=== PATIENT | female | born 1930 | race Caucasian/White ===

== ENCOUNTER 2017-11-25 19:56 | Inpatient (IN) ==
[2017-11-25] MEDS ORDERED: *HR* OxyCODONE/APAP 5/325 TABLET PO ONE (20:09)
--- NOTE | 2017-11-25 20:12 | Emergency Department Note ---
Addendum entered and electronically signed by Nilton Macias DO 11/25/17 22:21: EKG demonstrates atrial fibrillation rate 95 bpm. Normal axis. Normal intervals. Normal R-wave progression. No gross ST elevations or depressions. No acute ischemic findings. Original Note: Disposition Clinical Impression: Femoral neck fracture Qualifiers: Encounter type: initial encounter Fracture type: closed Laterality: left Qualified Code(s): S72.002A - Fracture of unspecified part of neck of left femur , initial encounter for closed fracture Hypertension Qualifiers: Hypertension type: unspecified Qualified Code(s): I10 - Essential (primary) hypertension Afib Qualifiers: Atrial fibrillation type: unspecified Qualified Code(s): I48.91 - Unspecified atrial fibrillation Disposition: Admitted As Inpatient Condition: Good Fall HPI - General Chief Complaint: ED Fall Stated Complaint: fall Time Seen by Provider: 11/25/17 19:58 Source: patient, EMS Mode of arrival: EMS Limitations: physical limitation Nursing Notes Reviewed: Yes Vital Signs Reviewed: Yes - History of Present Illness HPI Narrative: 87-year-old female presents to the ER via EMS due to left hip pain. Reports that she was walking prior to arrival she was stepping up a step, her foot caught and she fell. She believes she landed on her left side. She denies head injury or loss of consciousness. She was unable to ambulate after the fall. EMS was called and she was brought in for evaluation. She denies any numbness tingling or paresthesias of the left leg. She denies any other injuries. She denies a prior history of surgical operation of the left hip. No other complaints. Pt Subjective Complaint: fall Onset (ago): [employer] Fall From: standing Fall Witnessed: yes Place Fall Occurred: other Loss of Consciousness: none Prolonged Down Time?: no Symptoms Prior to Fall: none Context: tripped/slipped Location of injury: hip Associated symptoms (after fall): Reports: denies - Related Data Home Medications Medication Instructions Recorded Confirmed CloNIDine HCl 0.1 mg PO AD PRN 01/09/15 04/30/15 Furosemide [Lasix] 40 mg PO AD PRN 01/09/15 04/30/15 Levothyroxine [Synthroid] 150 mcg PO QAM 01/09/15 04/30/15 Losartan [Cozaar] 100 mg PO QAM 01/09/15 04/30/15 Metformin [Glucophage] 500 mg PO QAM 01/09/15 04/30/15 Metoprolol XL (24 HR) Succ [Toprol 50 mg PO QAM 01/09/15 04/30/15 XL] Potassium Chloride 10 meq PO QAM 01/09/15 04/30/15 Amlodipine [Norvasc] 2.5 mg PO DAILY 04/30/15 04/30/15 Simvastatin [Zocor] 20 mg PO DAILY 04/30/15 04/30/15 Previous Rx's Medication Instructions Recorded Apixaban [Eliquis] 2.5 mg PO BID 60 Days tablet 05/03/15 Allergies Allergy/AdvReac Type Severity Reaction Status Date / Time Sulfa (Sulfonamide Allergy Hives Verified 01/09/15 18:17 Antibiotics) All systems ED: reviewed and negative except as stated. Cardiovascular: Denies: chest pain Gastrointestinal: Denies: abdominal pain Musculoskeletal: Reports: other (Left hip pain). 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 - Social History Smoking Status: Never smoker Alcohol use: Reports: none Drug use: Reports: none Physical Exam - General Limitations: no limitations General appearance: alert, in no apparent distress - Head Head exam: atraumatic, normocephalic - Eye Eye exam: Present: normal appearance - ENT ENT exam: normal exam - Neck Neck exam: Present: normal inspection, full ROM - Chest Chest inspection: Present: normal inspection, symmetric chest wall rise - Respiratory Respiratory exam: Present: normal lung sounds bilaterally - Cardiovascular Cardiovascular exam: Present: regular rate, normal rhythm, normal heart sounds - Abdominal Exam Abdominal exam: Present: soft, Non-Tender. Absent: tenderness, distention, rigidity - Extremities Exam Extremities exam: Present: normal inspection, full ROM - Expanded Upper Extremity Exam Shoulder exam: Present: normal inspection, full ROM Arm exam: Present: normal inspection, full ROM Elbow exam: Present: normal inspection, full ROM Forearm/Wrist exam: Present: normal inspection, full ROM Hand exam: Present: normal inspection, full ROM - Expanded Lower Extremity Exam Hip/Pelvis exam: Present: other (Tenderness to the left hip with external rotation of the left leg.) Upper leg exam: Present: normal inspection Knee exam: Present: normal inspection, full ROM Lower leg exam: Present: normal inspection, full ROM Ankle exam: Present: normal inspection, full ROM Foot/toe exam: Present: normal inspection, full ROM Neurovascular/Tendon exam: Absent: sensory deficit - Skin Skin exam: Present: warm, dry Course Course Narrative: Patient seen and examined. Vital signs reviewed. Imaging of the hip and pelvis as well as baseline labs. Gestalt is left hip fracture. Admit with orthopedic consultation. - Reevaluation(s) Reevaluation #1: Updated patient and family on findings. Comfortable with plan. She is noted to be hypertensive here. Labetalol 10 mg ordered. Patient to be admitted to the hospitalist service. - Consultations Consultation #1: I spoke with the on-call orthopedic surgeon Dr. Griffin. Discussed the patient' s history exam imaging and current interventions. Request nothing by mouth at midnight with anticipation of surgery in the morning. Vital Signs Temperature 97.6 F 11/25/17 19:59 Pulse Rate 101 11/25/17 19:59 Respiratory Rate 18 11/25/17 19:59 Blood Pressure 196/137 11/25/17 19:59 O2 Sat by Pulse Oximetry 94 11/25/17 19:59 Temperature 97.6 F 11/25/17 19:59 Pulse Rate 92 11/25/17 21:08 Respiratory Rate 17 11/25/17 21:08 Blood Pressure 194/111 11/25/17 21:08 O2 Sat by Pulse Oximetry 94 11/25/17 21:08 Oxygen Delivery Oxygen Delivery Room Air Fall - [facility] Narrative Medical decision making narrative: 87-year-old female with mechanical fall. Left femoral neck fracture. Neurovascularly intact otherwise. Case discussed with on-call orthopedic surgeon. Plan for operation in the morning. Nothing by mouth at midnight. Patient admitted to the hospitalist service. - Lab Data Lab results reviewed: Yes I reviewed the patient's lab results. Result diagrams: 11/25/17 21:24 11/25/17 21:24 Lab Results 11/25/17 11/25/17 11/25/17 Range/Units 21:24 21:24 21:24 WBC 11.7 H (4.3-11.1) K/mcL RBC 5.27 H (3.82-4.97) M/mcL Hgb 16.5 H (11.5-15.4) g/dL Hct 49.5 H (35.3-44.9) % MCV 93.9 (83.0-100.0) fL MCH 31.3 (28.0-33.3) pg MCHC 33.3 (31.6-35.5) g/dL RDW 13.3 (11.5-14.5) % Plt Count 216 (140-400) K/mcL MPV 10.9 (9.4-12.4) fL Immature Gran % 0.6 (0-4) % Seg Neutrophils % 81.4 % Lymphocytes % 11.1 % Monocytes % 5.2 % Eosinophils % 1.3 % Basophils % 0.4 % Neutrophils # 9.5 H (1.6-8.9) K/mcL Lymphocytes # 1.3 (0.6-4.6) K/mcL Monocytes # 0.6 (0.0-1.3) K/mcL Eosinophils # 0.2 (0.0-0.6) K/mcL Basophils # 0.1 (0.0-0.2) K/mcL PT 13.2 H (9.4-12.1) Seconds INR 1.2 Sodium 133 L (136-145) mEq/L Potassium 4.2 (3.5-5.1) mEq/L Chloride 95 L (98-107) mEq/L Carbon Dioxide 28 (23-29) mEq/L BUN 19 (8-23) mg/dL Creatinine 0.90 (0.60-1.20) mg/dL Est GFR ( Amer) > 60 (> 60) Est GFR (Non-Af Amer) 59 L (> 60) BUN/Creatinine Ratio 21 (6-26) Glucose 139 H (70-105) mg/dL Calculated Osmolality 281 (280-300) Calcium 10.0 (8.6-10.3) mg/dL S.B.A.R. - S.B.A.R. Situation: Demographics, MOA Background: Presenting Complaint, Relevant PMH, Meds, & Allergies Assessment: Vital Signs, Course and respsone to treatment, Exam Concerns, Patient/Family Expectation, Pertinant Lab Results Recommendation: Barrier(s) to disposition, Recommendation based on pending studies, treatments, or consults S.Shahriar.A.R. Report Given to: Dr. Kelley Attestation Statement - Attestation Attestation: Patient was seen with resident physician. I reviewed the history, physical, assessment and plan, and agree with the findings. I also personally evaluated this patient and had [id number] time with this patient. 87-year-old female presents to the emergency department with chief complaint of left hip pain. Patient basically tripped on a step her foot got caught and she landed on her left hip and pelvis. Patient denies loss of consciousness or head injury. She denies other complaints. She says her hip does not hurt too bad when she is sitting still, but she cannot walk on it or move it at all. She denies other injuries. Review of systems as above remainder negative. Physical exam vital signs demonstrate hypertension. Apparently patient is consistent with her hypertension medicines. ENT is unremarkable head and neck eyes show no signs of trauma or tenderness. Back is nontender. Pelvis is stable to palpation. Heart regular rhythm and rate. Lungs clear. Abdomen soft and nontender. Extremities she has a shortened externally rotated left foot consistent with a hip fracture. Distal pulses are intact. Psych normal neuro cannot move the left lower extremity secondary to pain but otherwise is neurologically intact with good sensation throughout. Skin no obvious rashes. Psych normal. ED course we will do basic lab testing in preparation for possibly going to the OR. We will get x-rays and admit the patient for hip fracture. We also started treatment for her high blood pressure. Orthopedics was contacted and consult did. Hospitalist service was notified as the need for admission. Patient was hemodynamically stable in the emergency department. I agree with resident physician assessment and plan.
[2017-11-25] MEDS ORDERED: *HR* Labetalol 100 MG/20 ML MDV IVP ONE (21:29)
[2017-11-25 21:36] LABS: Basophils # 0.1 K/mcL (0.0-0.2); Basophils % 0.4 %; Eosinophils # 0.2 K/mcL (0.0-0.6); Eosinophils % 1.3 %; Hematocrit 49.5 % (35.3-44.9); Hemoglobin 16.5 g/dL (11.5-15.4); Immature Granulocytes % 0.6 % (0-4); Lymphocytes # 1.3 K/mcL (0.6-4.6); Lymphocytes % 11.1 %; Mean Corpuscular HGB Conc 33.3 g/dL (31.6-35.5); Mean Corpuscular Hemoglobin 31.3 pg (28.0-33.3); Mean Corpuscular Volume 93.9 fL (83.0-100.0); Mean Platelet Volume 10.9 fL (9.4-12.4); Monocytes # 0.6 K/mcL (0.0-1.3); Monocytes % 5.2 %; Neutrophils # 9.5 K/mcL (1.6-8.9); Platelet Count 216 K/mcL (140-400); Red Blood Count 5.27 M/mcL (3.82-4.97); Red Cell Distribution Width 13.3 % (11.5-14.5); Segmented Neutrophils % 81.4 %
[2017-11-25 21:45] LABS: INR 1.2; Prothrombin Time 13.2 Seconds (9.4-12.1)
[2017-11-25 21:53] LABS: BUN/Creatinine Ratio 21 (6-26); Blood Urea Nitrogen 19 mg/dL (8-23); Carbon Dioxide 28 mEq/L (23-29); Chloride 95 mEq/L (98-107); Glucose 139 mg/dL (70-105); Osmolality,Calculated 281 (280-300); Potassium 4.2 mEq/L (3.5-5.1); Sodium 133 mEq/L (136-145); eGFR For Non-African Americans 59 (> 60)
[2017-11-26] MEDS ORDERED: Acetaminophen 325 MG TABLET PO PRN ×2 (02:20→13:12)
[2017-11-26] MEDS ORDERED: Naloxone 0.4 MG/ML INJ IVP PRN ×2 (02:20→13:12)
--- NOTE | 2017-11-26 02:30 | Internal Med History&Physical ---
Date of Encounter: 11/26/17 Time of Encounter: 01:40 Internal Medicine - H&P: HPI Chief complaint: Left femoral neck fracture Admitted From: Home Plans for Post Hospital Care: Home History of present illness: Ms. Dove is a 87 year old female Patient was getting ready to go to eat, arrived to the restaurant, got out of the car, attempted to step up to the curb and fell. She landed on her left side and had pain immediately in the left hip. She is transferred to the emergency room for further evaluation. Hip x-ray showed acute mildly displaced left femoral neck fracture. The emergency room contacted Dr. Griffin orthopedic surgeon, who agreed to see the patient in the morning. Patient has a known history of atrial fibrillation and takes Eliquis, but is unclear if she is actually taking this medicine as prescribed. Patient hypertensive in the emergency room, and was given 10 mg of labetalol. She was admitted to the hospital for further management. Past Med Surg Social Fam HX - Past Medical History Medical history: coronary artery disease, diabetes, hyperlipidemia, hypertension , RA Additional medical history: CHF Psychiatric history: no psych history - Past Surgical History Surgical History: hysterectomy, other Additional surgical history: Bladder surgery - Social History Smoking Status: Never smoker Smokeless Tobacco Status: No Alcohol use: none Drug use: none - Family History Father Living Status: Age at : 70 Mother Living Status: Age at : 70 Cause of : "age related" Hx Family Neuromuscular Disorders: Yes (ARTHRITIS) Internal Medicine - H&P: Meds CloNIDine HCl 0.1 mg PO AD PRN 01/09/15 [History] Furosemide [Lasix] 40 mg PO AD PRN 01/09/15 [History] Levothyroxine [Synthroid] 150 mcg PO QAM 01/09/15 [History] Losartan [Cozaar] 100 mg PO QAM 01/09/15 [History] Metformin [Glucophage] 500 mg PO QAM 01/09/15 [History] Metoprolol XL (24 HR) Succ [Toprol XL] 50 mg PO QAM 01/09/15 [History] Potassium Chloride 10 meq PO QAM 01/09/15 [History] Amlodipine [Norvasc] 2.5 mg PO DAILY 04/30/15 [History] Simvastatin [Zocor] 20 mg PO DAILY 04/30/15 [History] Apixaban [Eliquis] 2.5 mg PO BID 60 Days tablet 05/03/15 [Rx] LORazepam [Ativan] 0.5 mg PO DAILY PRN 11/25/17 [History] 3 Allergy/AdvReac Type Severity Reaction Status Date / Time Sulfa (Sulfonamide Allergy Hives Verified 01/09/15 18:17 Antibiotics) All Systems PM: A 10-system review of systems was performed and is negative for pertinent findings except as documented above in the HPI. - Constitutional Vitals: Temp Pulse Resp BP Pulse Ox 97.8 F 103 15 175/106 92 11/25/17 23:44 11/26/17 00:26 11/25/17 23:44 11/26/17 00:26 11/25/17 23:44 General appearance: Present: cooperative, A&O X 3, pleasant, no acute distress, answers questions appropriately - Head Head exam: Present: normal inspection - Eye Eye exam: Present: EOMI, normal appearance - Respiratory Respiratory exam: Present: CTAB. Absent: chest wall tenderness, respiratory distress, wheezes - Cardiovascular Cardiovascular exam: Present: irregular rhythm. Absent: diastolic murmur, systolic murmur - GI/Abdominal GI/Abdominal exam: Present: normal bowel sounds, soft. Absent: tenderness - Extremities Exam Extremities exam: Present: warm, radial pulses palpable and symmetrical. Absent : calf tenderness, pedal edema, tenderness Additional comments: mildly tender left hip laterally, mild tenderness over left groin with palpation. Left leg is externally rotated with shortening - Neurological Exam Neurological exam: Present: strengths equal and symetr throughout. Absent: facial droop, speech deficit - Skin Skin exam: Present: dry, normal color, warm Internal Med - H&P Results - Labs CBC & Chem 7: 11/26/17 05:22 11/26/17 05:22 - Assessment and plan (1) Femoral neck fracture Current Visit: Yes Status: Acute Assessment and plan: Patient had mechanical fall resulting in a left femoral neck fracture. Orthopedic surgery consulted, plan to take patient to OR for repair. Await management as per surgery. Qualifiers: Encounter type: initial encounter Fracture type: closed Laterality: left Qualified Code(s): S72.002A - Fracture of unspecified part of neck of left femur, initial encounter for closed fracture (2) Hypertension Current Visit: Yes Status: Chronic Assessment and plan: Patient's blood pressure was 196/137 in the emergency room, improved to 163/83 on the floor. Patient takes several antihypertensive medications. Continue home medications IV hydralazine as needed. Qualifiers: Hypertension type: unspecified Qualified Code(s): I10 - Essential (primary ) hypertension (3) Atrial fibrillation Current Visit: Yes Status: Acute Assessment and plan: Patient has atrial fibrillation, on metoprolol 50 mg as well as Eliquis. There was report that she may not be taking this medication as prescribed. 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
[2017-11-26] MEDS ORDERED: Dextrose Gel 15 GM/37.5 ML TUBE PO PRN ×4 (04:56→13:12)
[2017-11-26] MEDS ORDERED: D5% in Water 1,000 ML IVC PRN ×2 (04:56→13:12)
[2017-11-26] MEDS ORDERED: *HR* Dextrose 50 % in Water (Syg) 50 ML SYRINGE IVP PRN ×2 (04:56→13:12)
[2017-11-26 05:51] LABS: Hematocrit 48.4 % (35.3-44.9); Hemoglobin 16.1 g/dL (11.5-15.4); Mean Corpuscular HGB Conc 33.3 g/dL (31.6-35.5); Mean Corpuscular Hemoglobin 30.8 pg (28.0-33.3); Mean Corpuscular Volume 92.5 fL (83.0-100.0); Mean Platelet Volume 11.2 fL (9.4-12.4); Platelet Count 210 K/mcL (140-400); Red Blood Count 5.23 M/mcL (3.82-4.97); Red Cell Distribution Width 13.2 % (11.5-14.5)
[2017-11-26 06:10] LABS: BUN/Creatinine Ratio 23 (6-26); Blood Urea Nitrogen 18 mg/dL (8-23); Calcium 9.9 mg/dL (8.6-10.3); Carbon Dioxide 28 mEq/L (23-29); Chloride 95 mEq/L (98-107); Glucose 184 mg/dL (70-105); Osmolality,Calculated 283 (280-300); Potassium 4.2 mEq/L (3.5-5.1); Sodium 133 mEq/L (136-145); eGFR For Non-African Americans > 60 (> 60)
--- NOTE | 2017-11-26 07:35 | Anesthesia Evaluation PreOp ---
Date of Encounter: 11/26/17 Time of Encounter: 07:34 - Past History Planned Operation: L-sid Hip Arthroplasty Cardiac History: CHF, HTN, Hyperlipidemia, Arrhythmia (AFib - found to be non- compliant with Eliquis. 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: CVA (silent CVA), TIA Other Medical History: Diabetes Type II, Thyroid (Hypothyroidism), Other (RA) Anesthesia History: No Prior Anesthetic Complications, Past Anesthesia ( Hysterectomy, Bladder surgery) Alcohol Use: none Drug use: none Medications and Allergies CloNIDine HCl 0.1 mg PO AD PRN 01/09/15 [History] Furosemide [Lasix] 40 mg PO AD PRN 01/09/15 [History] Levothyroxine [Synthroid] 150 mcg PO QAM 01/09/15 [History] Losartan [Cozaar] 100 mg PO QAM 01/09/15 [History] Metformin [Glucophage] 500 mg PO QAM 01/09/15 [History] Metoprolol XL (24 HR) Succ [Toprol XL] 50 mg PO QAM 01/09/15 [History] Potassium Chloride 10 meq PO QAM 01/09/15 [History] Amlodipine [Norvasc] 2.5 mg PO DAILY 04/30/15 [History] Simvastatin [Zocor] 20 mg PO DAILY 04/30/15 [History] Apixaban [Eliquis] 2.5 mg PO BID 60 Days tablet 05/03/15 [Rx] LORazepam [Ativan] 0.5 mg PO DAILY PRN 11/25/17 [History] 3 Allergy/AdvReac Type Severity Reaction Status Date / Time Sulfa (Sulfonamide Allergy Hives Verified 01/09/15 18:17 Antibiotics) - Meds/Allergy Pre-op Review Medications Reviewed: Yes Allergies Reviewed: Yes Beta Blockers on Current Med List: Yes If Beta Blockers taken, Date/Time (Last Dose taken): Metoprolol 11/26/2017 @ 0814 Anesthesia Results - Labs 11/26/17 05:22 11/26/17 05:22 Laboratory Results WBC 16.7 K/mcL (4.3-11.1) H 11/26/17 05:22 RBC 5.23 M/mcL (3.82-4.97) H 11/26/17 05:22 Hgb 16.1 g/dL (11.5-15.4) H 11/26/17 05:22 Hct 48.4 % (35.3-44.9) H 11/26/17 05:22 MCV 92.5 fL (83.0-100.0) 11/26/17 05:22 MCH 30.8 pg (28.0-33.3) 11/26/17 05:22 MCHC 33.3 g/dL (31.6-35.5) 11/26/17 05:22 RDW 13.2 % (11.5-14.5) 11/26/17 05:22 Plt Count 210 K/mcL (140-400) 11/26/17 05:22 MPV 11.2 fL (9.4-12.4) 11/26/17 05:22 Immature Gran % 0.6 % (0-4) 11/25/17 21:24 Seg Neutrophils % 81.4 % 11/25/17 21:24 Lymphocytes % 11.1 % 11/25/17 21:24 Monocytes % 5.2 % 11/25/17 21:24 Eosinophils % 1.3 % 11/25/17 21:24 Basophils % 0.4 % 11/25/17 21:24 Neutrophils # 9.5 K/mcL (1.6-8.9) H 11/25/17 21:24 Lymphocytes # 1.3 K/mcL (0.6-4.6) 11/25/17 21:24 Monocytes # 0.6 K/mcL (0.0-1.3) 11/25/17 21:24 Eosinophils # 0.2 K/mcL (0.0-0.6) 11/25/17 21:24 Basophils # 0.1 K/mcL (0.0-0.2) 11/25/17 21:24 PT 13.2 Seconds (9.4-12.1) H 11/25/17 21:24 INR 1.2 11/25/17 21:24 Sodium 133 mEq/L (136-145) L 11/26/17 05:22 Potassium 4.2 mEq/L (3.5-5.1) 11/26/17 05:22 Chloride 95 mEq/L (98-107) L 11/26/17 05:22 Carbon Dioxide 28 mEq/L (23-29) 11/26/17 05:22 BUN 18 mg/dL (8-23) 11/26/17 05:22 Creatinine 0.80 mg/dL (0.60-1.20) 11/26/17 05:22 Est GFR ( Amer) > 60 (> 60) 11/26/17 05:22 Est GFR (Non-Af Amer) > 60 (> 60) 11/26/17 05:22 BUN/Creatinine Ratio 23 (6-26) 11/26/17 05:22 Glucose 184 mg/dL (70-105) H 11/26/17 05:22 Calculated Osmolality 283 (280-300) 11/26/17 05:22 Calcium 9.9 mg/dL (8.6-10.3) 11/26/17 05:22 Blood Type AB POSITIVE 11/26/17 05:22 Antibody Screen NEGATIVE 11/26/17 05:22 Impressions Hip X-Ray 11/25/17 20:09 IMPRESSION: Acute mildly displaced left femoral neck fracture. D/ / Andreas Blunt MD / Andreas Blunt MD Interpreting Provider: Andreas Blunt MD - Imaging Additional studies: ECHO 05/01/2015 LVEF 50%, MOderated MR< Moderate-Severe TR, Moderate Pulm Htn. All wall segments showed normal motion. Anesthesia Exam Vital Signs Temp Pulse Resp BP Pulse Ox 11/26/17 05:01 109 163/83 11/26/17 03:34 98.0 F 85 16 170/107 92 11/26/17 00:26 103 175/106 11/25/17 23:44 97.8 F 114 15 191/101 92 11/25/17 23:11 18 174/115 11/25/17 21:08 92 17 194/111 94 11/25/17 19:59 97.6 F 101 18 196/137 94 Intake and Output 11/25/17 11/25/17 11/26/17 15:59 23:59 07:59 Output Total 600 / 600 Balance -600 / -600 Output: Catheter 600 / 600 Other: Weight 55.338 kg 46.4 kg Blood Glucose* 219 Patient Weight 11/26/17 23:59 Weight 46.4 kg Height: 5' Weight: 102# BMI = 20 NPO (# of Hours): MNOc - HEENT Pupil (Motor): Pupils equal, EOMI Mallampati: II Teeth: Normal Oral Opening: Greater than 3 - 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 Dale Iqbal MD
[2017-11-26] MEDS: Insulin LISPRO 300 UNITS/3 ML VIAL SQ SCH ×3 (08:13→16:29)
[2017-11-26 08:27] LABS: Magnesium 1.5 mg/dL (1.6-2.6); Phosphorous 3.2 mg/dL (2.7-4.5)
[2017-11-26] MEDS ORDERED: Ketamine *HR* 500 MG/10 ML MDV ONE (08:41)
[2017-11-26] MEDS ORDERED: Acetaminophen IV 1,000 MG/100 ML INFUS..BTL ONE (08:42)
[2017-11-26] MEDS ORDERED: Lidocaine -MPF 0.5% 50 ML VIAL ONE (08:42)
[2017-11-26] MEDS ORDERED: Ethanol\\Acetic Acid\\Na Ace\\Ben 1,000 ML IRRIG.SOLN IR ONE (08:52)
[2017-11-26] MEDS ORDERED: Metoprolol XL (24 HR) Succ 50 MG TAB.ER.24H PO SCH (09:00)
[2017-11-26] MEDS ORDERED: Lidocaine -MPF 1% 5 ML AMPUL ONE (09:12)
[2017-11-26] MEDS ORDERED: *HR* Morphine Sulfate/PF 10 MG/10 ML AMPUL ONE (09:12)
--- NOTE | 2017-11-26 09:31 | Orthopedic Consult Note ---
Date of Encounter: 11/26/17 Time of Encounter: 09:31 Assessment and Plan (1) Femoral neck fracture Current Visit: Yes Status: Acute The diagnosis and treatment recommendations were discussed with the patient and her family. She has a displaced femoral neck fracture of the left hip and to allow her opportunity for early mobility with therapy, and for pain control and to decrease the risks associated with immobility, surgical treatment was recommended. After discussing the pros and cons of treatment options including non-operative and operative intervention, the patient has consented for left hip hemiarthroplasty to be performed. The risks and benefits of the procedure were fully explained in detail, including but not limited to the risk of infection, neurovascular injury, continued pain or stiffness, failure of surgery or dislocation, reinjury, or need for additional surgery, DVT, PE, general risks of anesthesia and loss of limb or life. No guarantees were given or implied and all questions were answered. The patient understands all the risks and does wish to proceed with written consent. NPO for surgery today. Appreciate medical management from primary team. Qualifiers: Encounter type: initial encounter Fracture type: closed Laterality: left Qualified Code(s): S72.002A - Fracture of unspecified part of neck of left femur, initial encounter for closed fracture History of Present Illness HPI: Ms. Dove is a 87 year old female with PMHx with CAD, HLD, HTN, CHF, diabetes, RA who tripped and had a mechanical fall yesterday onto her left hip. Denies hitting her head or loss of consciousness. No prodromal symptoms including chest pain, palpitations, lightheadedness, or blurring of vision. She was brought to the ED and diagnosed with a left hip displaced femoral neck fracture. Orthopedics was consulted for fracture management. Denies CP, SOB, fevers, chills or any recent illnesses. Denies pain other than her left hip. No numbness or tingling. She has a walker but does not always use it. Past Med Surg Social Fam HX - Past Medical History Medical history: coronary artery disease, diabetes, hyperlipidemia, hypertension , RA Additional medical history: CHF Psychiatric history: no psych history - Past Surgical History Surgical History: hysterectomy, other Additional surgical history: Bladder surgery - Social History Smoking Status: Never smoker Smokeless Tobacco Status: No Alcohol use: none Drug use: none - Family History Father Living Status: Age at : 70 Mother Living Status: Age at : 70 Cause of : "age related" Hx Family Neuromuscular Disorders: Yes (ARTHRITIS) Medications and Allergies CloNIDine HCl 0.1 mg PO AD PRN 01/09/15 [History] Furosemide [Lasix] 40 mg PO AD PRN 01/09/15 [History] Levothyroxine [Synthroid] 150 mcg PO QAM 01/09/15 [History] Losartan [Cozaar] 100 mg PO QAM 01/09/15 [History] Metformin [Glucophage] 500 mg PO QAM 01/09/15 [History] Metoprolol XL (24 HR) Succ [Toprol XL] 50 mg PO QAM 01/09/15 [History] Potassium Chloride 10 meq PO QAM 01/09/15 [History] Amlodipine [Norvasc] 2.5 mg PO DAILY 04/30/15 [History] Simvastatin [Zocor] 20 mg PO DAILY 04/30/15 [History] Apixaban [Eliquis] 2.5 mg PO BID 60 Days tablet 05/03/15 [Rx] LORazepam [Ativan] 0.5 mg PO DAILY PRN 11/25/17 [History] 3 Allergy/AdvReac Type Severity Reaction Status Date / Time Sulfa (Sulfonamide Allergy Hives Verified 01/09/15 18:17 Antibiotics) All Systems Reviewed: The remainder of the systems were reviewed and are negative except as noted in the HPI Physical Exam - Constitutional Vitals: Temp Pulse Resp BP Pulse Ox 97.6 F 103 17 154/74 94 11/26/17 08:28 11/26/17 08:28 11/26/17 08:28 11/26/17 08:28 11/26/17 08:28 Exam: Consult Exam: Constitutional -Vitals reviewed -The patient is well developed and well nourished. -Mood is pleasant. -The patient is well groomed. Psychiatric -The patient alert and oriented to person and place. Respiratory: -Respiratory effort normal Abdomen: -Soft abdomen -Non tender -Non distended: Left upper extremity: -No deformities. The overlying skin is intact with overlying ecchymosis. No TTP -No significant pain with passive motion of the shoulder, elbow, able to flex fingers. -Able to make an "OK" sign, cross the index and long fingers, and extend the thumb. -Sensation grossly intact to light touch throughout the median, radial, and ulnar distributions. -Radial pulse is present; Fingers have good capillary refill. Right upper extremity: -No deformities. The overlying skin is intact. No obvious signs of acute trauma. -No tenderness to palpation throughout. -No significant pain with passive motion of the shoulder, elbow, wrist, and fingers within the limits of the bed. -Able to make an "OK" sign, cross the index and long fingers, and extend the thumb. -Sensation grossly intact to light touch throughout the median, radial, and ulnar distributions. -Radial pulse is present; Fingers have good capillary refill. Left lower extremity: -The extremity is shortened and externally rotated. The overlying skin is intact. -There is tenderness in the groin region as well as the proximal lateral thigh. -I did not range the hip due to the known fracture. -No tenderness along the distal thigh, leg, ankle, foot, or toes. -Able to dorsiflex and plantarflex the ankle and toes. -Sensation is grossly intact to light touch throughout the sural, saphenous, superficial peroneal, and deep peroneal distributions. -Toes have good capillary refill. Right lower extremity: -No deformities. The overlying skin is intact. No obvious signs of acute trauma. -No tenderness to palpation throughout. -No pain with passive motion of the hip, knee, ankle, and toes within the limits of the bed. -No pain with axial loading of the thigh. -Able to dorsiflex and plantarflex the ankle and toes. -Sensation is grossly intact to light touch throughout the sural, saphenous, superficial peroneal, and deep peroneal distributions. -Toes have good capillary refill. Results - Labs Result Diagrams: 11/26/17 05:22 11/26/17 05:22 Labs: Abnormal lab results WBC 16.7 K/mcL (4.3-11.1) H 11/26/17 05:22 RBC 5.23 M/mcL (3.82-4.97) H 11/26/17 05:22 Hgb 16.1 g/dL (11.5-15.4) H 11/26/17 05:22 Hct 48.4 % (35.3-44.9) H 11/26/17 05:22 Neutrophils # 9.5 K/mcL (1.6-8.9) H 11/25/17 21:24 PT 13.2 Seconds (9.4-12.1) H 11/25/17 21:24 Sodium 133 mEq/L (136-145) L 11/26/17 05:22 Chloride 95 mEq/L (98-107) L 11/26/17 05:22 Glucose 184 mg/dL (70-105) H 11/26/17 05:22 POC Glucose 167 mg/dL (70-99) H 11/26/17 08:12 Magnesium 1.5 mg/dL (1.6-2.6) L 11/26/17 05:22 B-Natriuretic Peptide 376 pg/mL (Less than 100) H 11/26/17 05:22 H & H 11/26/17 Range/Units 05:22 Hgb 16.1 H (11.5-15.4) g/dL Hct 48.4 H (35.3-44.9) % All other labs normal. - Diagnostic results Hip x-ray: report reviewed, image reviewed (Displaced left femoral neck fracture. No other fracture/dislocation noted) Consult Discharge Plan - Plan Referrals: Chaz Pepe MD [Primary Care Provider] -
--- NOTE | 2017-11-26 10:34 | Anesthesia Procedures ---
Date of Encounter: 11/26/17 Time of Encounter: 09:32 Procedures: Anesthesia - Epidural/Spinal Patient ID/Chart reviewed: Yes Patient examined: Yes Consent Obtained: Yes Supplemental Oxygen: Nasal Cannula Supplemental Oxygen Rate (L/min): 3 Sedation: Fentanyl (mcg): 25 (Patient also received 15mg ketamine IVP) Site Prep: Aseptic Technique, Sterile prep and drape, Povidone-Iodine 1% Patient position: left lateral decubitus Local Anesthetic: Lidocaine 1% Amount of Local Anesthetic used: 3 Interspace Used: L3-L4 Blood: No CSF: Yes Paresthesia: No Spinal Needle Gauge: 25 (3.5" pencil point needle) Spinal Dose: 2.25mL 0.5% bupi,25mcg fentanyl,250mcg PF morphine Procedure: successful on 1st attempt; performed by Dr. Delgado; patient tolerated procedure well Vitals + FHT's: 3 Vital Signs Time pre-procedure post-procedure BP 197/111 164/105 Pulse 72 69 Resp 16 16 O2 Sat 98 97
[2017-11-26] MEDS ORDERED: *HR* Labetalol 20 MG/4 ML SYRINGE IVP PRN (10:36)
[2017-11-26] MEDS ORDERED: *HR* HYDROmorphone 2 MG TABLET PO PRN (10:36)
[2017-11-26] MEDS ORDERED: *HR* OxyCODONE Immed Rel 5 MG TABLET PO PRN (10:36)
[2017-11-26] MEDS ORDERED: *HR* FentaNYL (PF) 100 MCG/2 ML VIAL ONE (10:41)
[2017-11-26] MEDS ORDERED: *HR* PHENYLEPHRINE 1,000 MCG/10 ML SYRINGE IVP ONE (10:41)
[2017-11-26] MEDS ORDERED: Lidocaine -MPF 2% 2 ML VIAL ONE (10:41)
[2017-11-26] MEDS ORDERED: *HR* Magnesium Sulfate 1 GM/2 ML VIAL ONE (10:41)
[2017-11-26] MEDS ORDERED: *HR* Propofol 200 MG/20 ML VIAL IVP ONE (10:41)
[2017-11-26] MEDS ORDERED: Ketorolac 30 MG/ML VIAL ONE (11:01)
--- NOTE | 2017-11-26 12:41 | Anesthesia Evaluation Post Op ---
Date of Encounter: 11/26/17 Time of Encounter: 12:39 - Vital Signs Vital Signs: Vital Signs/O2 Sat/Glucose, Most Current Temp Pulse Resp BP Pulse Ox 11/26/17 12:17 97.5 F L 63 14 105/60 95 11/26/17 12:07 61 14 116/74 98 11/26/17 11:53 97.3 F L 60 16 110/64 96 11/26/17 11:43 61 16 108/79 95 11/26/17 11:33 56 14 109/70 95 11/26/17 11:23 97.1 F L 68 14 113/82 96 - Lungs Lungs: Clear Ascult./Percussion - Airway Airway: Non-obstructed - Cardiovascular Regular Rate - Mental Status Mental Status: Alert & Oriented, Answers Appropriately - Pain Pain Scale: 0 Pain Scale used: Numeric (1 - 10) - Nausea Vomiting Nausea Vomiting: Not Present - Hydration Hydration: Tolerates oral liquids, Scott catheter - Discharge PostOp Status: Transfer Patient to floor Anes Supervising Prov Stmt: Pt seen/evaluated, VSS and pt has met criteria for discharge to home. - MD Rasheed
[2017-11-26] MEDS ORDERED: Furosemide 40 MG TABLET PO PRN (13:12)
[2017-11-26] MEDS ORDERED: MOM Conc 10 ML UD.LIQ PO PRN (13:12)
[2017-11-26] MEDS ORDERED: *HR* Morphine 2 MG/ML SYRINGE IVP PRN (13:12)
[2017-11-26] MEDS ORDERED: Ondansetron 4 MG/2 ML VIAL IVP PRN (13:12)
[2017-11-26] MEDS ORDERED: Sennosides 8.6 MG TABLET PO PRN (13:12)
[2017-11-26] MEDS ORDERED: Temazepam 15 MG CAPSULE PO PRN (13:12)
[2017-11-26] MEDS ORDERED: cloNIDine HCl 0.1 MG TABLET PO PRN (13:12)
[2017-11-26] MEDS ORDERED: *HR* LORazepam 0.5 MG TABLET PO PRN (13:12)
[2017-11-26] MEDS: Ringers Solution, Lactated 1,000 ML IVC SCH (13:23)
--- NOTE | 2017-11-26 14:24 | Orthopedic Operative Note ---
Date of procedure: 11/26/17 Procedure: Procedure: Left hip hemiarthroplasty Preoperative Diagnosis: Left displaced femoral neck fracture Postoperative Diagnosis: Same Surgeon: Lazaro Griffin MD Inside Sales Advertising Executive: None Anesthesia: General EBL: 100 cc Complications: None Components used: Biomet Echo lateralized femoral stem, size 11, Endo II 46 mm head, -3 neck INDICATIONS: This is a 87 yo F who had a fall and sustained a left displaced femoral neck fracture. After discussing the procedure at length, and to allow for early mobilization and pain control, the patient elected for operative management with a left hip hemiarthroplasty. The risks and benefits of the procedure were fully explained. Those risks include but are not limited to, infection, neurovascular injury, continued pain, stiffness, further injury, need for further surgery, DVT, PE, loss of limb, and loss of life. The patient understood all of these risks and wished to proceed. Informed consent was obtained. No guarantees were stated or implied. OPERATIVE REPORT: The patient was identified in the holding area. The left lower extremity was marked, the patient was taken to the operating room and general anesthetic was administered on the hospital bed. The patients head, neck and airway were protected by anesthesia through the case. The patient was then transferred to the operating table and placed in the lateral position on a peg board. All bony prominences were well padded. The left lower extremity was then prepped and draped in the normal manner. Preoperative antibiotics were given prior to incision. A surgical time out protocol was then performed. A posterior approach was made. Incision was made just posterior to the greater trochanter. Sharp dissection was carried through subcutaneous tissue down to the fascia, coagulating any skin bleeders. Fascia tamiko and gluteus rojelio fascia were then incised. Rojelio fibers were digitally dissected and a Charnley retractor was placed. The hip was extended and internally rotated. A Cobra retractor was then placed over the ilium to retract the abductors anteriorly. Electrocautery was then used to release the piriformis and then short external rotators and capsule from the posterior aspect of the hip joint and a full-thickness flap was created. This was tagged for later repair. The release was carried down distally to the level of the lesser trochanter. At this point the hip was dislocated and the femoral neck fracture was exposed. A saw was used to freshen up the femoral neck cut approximately 1 fingerbreadth above the lesser trochanter. The femoral head was removed with a corkscrew. The fractured neck fragments were removed with a ronguer. We then exposed the femur using a femoral elevator, and sequentially remained and broached the femur to appropriate size in accordance with the Biomet system. We seated a size 11 mm broach and did initial trial reductions with standard neck. The extremity was long and so the hip was dislocated and the standard neck was exchanged for a -3 neck and the hip was reduced. We had good soft tissue tensioning and stable range of motion, with good reproduction of leg lengths. The trials were removed and the femoral stem was press fit in place. Trial reductions were repeated with the -3 neck. Satisfied with the hip kinematics, we cleaned and dried the trunion and the final femoral head was impacted and the hip was reduced. We then did our final check of range of motion , stability and leg lengths. We then thoroughly irrigated the wound and closed the hip capsule with #1 ethibond. The piriformis tendon and external rotators were repaired through bone tunnels. Fascia tamiko was closed with #1 ethibond and subcutaneous tissues with 2-0 stratafix. Skin was closed with 3-0 stratafix. We then placed sterile dressings the patient was awoken by anesthesia and transferred to PACU in stable condition. Patient tolerated the procedure well. Postop plan: The patient will be transferred back to the floor and will be weight-bearing as tolerated postop with posterior hip precautions. Was there an resident care assistant present: No Estimated blood loss (cc): 100
--- NOTE | 2017-11-26 15:46 | Event Note ---
Date of Encounter: 11/26/17 Time of Encounter: 15:43 87 year old female with h/o- a,fib, HTN, DM, CAD, admitted with left hip pain, noted to have left femoral neck fracture, underwent left hip hemiarthroplasty today; resting in bed, denies left hip pain; somewaht drowsy; Chest -S1, S2 heard, irregular rate Left lateral hip- mild edema and some blood from the surgical incision, honeycomb dressing intact; hip abductor in place; Labs reviewed- leukocytosis likely due to stress/reactive; Mg- 1.3, supplemented Left hip fracture- s/p surgery POD-0; pain control, supportive care; postop care per Ortho; PT/OT evaluation; Atrial fibrillation- rate-controlled; continue beta len, anticoagulation with Eliquis has been resumed;
[2017-11-26] MEDS: Ascorbic Acid 500 MG TABLET PO SCH (16:24)
[2017-11-26] MEDS: Apixaban 5 MG TABLET PO SCH (20:45)
[2017-11-27] MEDS ORDERED: cloNIDine HCl 0.1 MG TABLET PO ONE (00:49)
[2017-11-27 00:57] LABS: Basophils # 0.1 K/mcL (0.0-0.2); Basophils % 0.4 %; Eosinophils # 0.5 K/mcL (0.0-0.6); Eosinophils % 3.8 %; Immature Granulocytes % 0.4 % (0-4); Lymphocytes # 0.8 K/mcL (0.6-4.6); Mean Corpuscular HGB Conc 33.8 g/dL (31.6-35.5); Mean Corpuscular Hemoglobin 31.6 pg (28.0-33.3); Mean Corpuscular Volume 93.5 fL (83.0-100.0); Mean Platelet Volume 10.8 fL (9.4-12.4); Monocytes # 0.7 K/mcL (0.0-1.3); Monocytes % 5.4 %; Platelet Count 170 K/mcL (140-400); Red Blood Count 4.49 M/mcL (3.82-4.97); Red Cell Distribution Width 13.4 % (11.5-14.5)
[2017-11-27 00:58] LABS: Hemoglobin 14.2 g/dL (11.5-15.4)
[2017-11-27 01:20] LABS: Potassium 4.2 mEq/L (3.5-5.1)
[2017-11-27] MEDS: Insulin LISPRO 300 UNITS/3 ML VIAL SQ SCH ×3 (08:37→19:29)
[2017-11-27] MEDS ORDERED: *HR* Metformin 500 MG TABLET PO SCH (09:00)
[2017-11-27] MEDS ORDERED: 0.9 % Sodium Chloride 1,000 ML IVC ONE (10:44)
--- NOTE | 2017-11-27 10:47 | Internal Med Progress Note ---
Hospitalist Progress Note - Encounter Date of Encounter: 11/27/17 Time of Encounter: 10:10 - Subjective Interval History: Overnight, she received 1 dose of temazepam for agitation as she currently appears sleepy but easily arousable. Does not seem to be in severe distress. - Exam Vitals: Temp Pulse Resp BP Pulse Ox 98.0 F 71 16 126/61 93 11/27/17 06:43 11/27/17 06:43 11/27/17 06:43 11/27/17 06:43 11/27/17 06:43 Exam: General: somnolent but easily arousable HEENT:EOM, pupils equal, round, and reactive. Cardiovascular:Normal S1 & S2 Lungs:Normal breath sounds, no wheezes or crackles. Abdomen:Soft, non-tender, no rigidity. Extremities: left hip dressing dry and clean. Neurovascularly intact distally - Assessment and Plan (1) Femoral neck fracture Current Visit: Yes Status: Acute Assessment and Plan: Status post left hip hemiarthroplasty, postop day 1. Continue pain management, PT/OT, postop care per orthopedics Discharge planning Resume anticoagulation with Eliquis (2) Dehydration Current Visit: Yes Status: Acute Assessment and Plan: She was a little delirious postoperatively and she had sodium of 131 and creatinine increased from 0.8 to 1.08 1 dose of normal saline 1L today avoid sedating agents during day time and encourage PO intake Monitor BMP (3) Delirium Current Visit: Yes Status: Acute Assessment and Plan: Was agitated overnight after the family members left the room. Was given 1 dose of Restoril overnight and she was somnolent until breakfast this morning. Will try Seroquel when necessary for agitation if absolutely needed (4) Atrial fibrillation Current Visit: Yes Status: Acute Assessment and Plan: Rate controlled on beta len, anticoagulation has been resumed (5) Non-insulin dependent type 2 diabetes mellitus Current Visit: No Status: Chronic Assessment and Plan: A1c 6.7 in June 2017. On metformin 500 mg twice a day. Will cover her with sliding scale insulin while inpatient. (6) Hypertension Current Visit: Yes Status: Chronic Assessment and Plan: Well-controlled, continue home dose of Norvasc, losartan, beta len. (7) DVT prophylaxis Current Visit: No Status: Acute Assessment and Plan: Eliquis has been resumed. - Time Spent with Patient Total time spent is greater than 50% in coordination of care (as documented) at patient's floor/unit and/or counseling patient: Plan of Care Discussed with: family Internal Medicine: Result - Labs CBC & Chem 7: 11/27/17 00:44 11/27/17 00:44 Labs: Short CBC 11/27/17 Range/Units 00:44 WBC 12.0 H (4.3-11.1) K/mcL Hgb 14.2 D (11.5-15.4) g/dL Hct 42.0 (35.3-44.9) % Plt Count 170 (140-400) K/mcL Neutrophils # 10.0 H (1.6-8.9) K/mcL BMP 11/27/17 00:44 Sodium 131 L Potassium 4.2 Chloride 94 L Carbon Dioxide 29 BUN 22 Creatinine 1.08 Glucose 126 H Calcium 9.0 - ABG Interpretation ABG results: PT/INR, D-dimer PT 13.2 Seconds (9.4-12.1) H 11/25/17 21:24 - VTE Documentation of Mechanical Device: Intermittent pneumatic compression device Consult Discharge Plan - Plan Referrals: Chaz Pepe MD [Primary Care Provider] - (1) Femoral neck fracture Qualifiers: Encounter type: initial encounter Fracture type: closed Laterality: left Qualified Code(s): S72.002A - Fracture of unspecified part of neck of left femur , initial encounter for closed fracture (4) Atrial fibrillation Qualifiers: Atrial fibrillation type: unspecified Qualified Code(s): I48.91 - Unspecified atrial fibrillation (6) Hypertension Qualifiers: Hypertension type: unspecified Qualified Code(s): I10 - Essential (primary) hypertension
--- NOTE | 2017-11-27 12:01 | Orthopedics Progress Note ---
Date of Encounter: 11/27/17 Time of Encounter: 11:59 - Assessment and Plan (1) Femoral neck fracture Current Visit: Yes Status: Acute Qualifiers: Encounter type: initial encounter Fracture type: closed Laterality: left Qualified Code(s): S72.002A - Fracture of unspecified part of neck of left femur, initial encounter for closed fracture Subjective Interval history: Doing fine POD#1 s/p L hip hemiarthroplasty. Resting comfortably. No N/V. No CP/ SOB. No fevers or chills. AFVSS Hg 14.2 GEN: NAD, AAOx3 LLE: Dressing c/d/i No drainage or erythema BCR over toes POD#1 s/p L hip hemiarthroplasty -WBAT LLE -Ambulate with PT as able -PO pain control -Discharge planning - will need rehab Objective Vital signs: Vital Signs Temp Pulse Resp BP Pulse Ox 11/27/17 10:47 97.6 F 67 16 117/70 96 11/27/17 10:20 110/64 11/27/17 06:43 98.0 F 71 16 126/61 93 11/27/17 05:55 97.4 F L 71 12 141/88 94 11/27/17 00:32 97.9 F 77 14 174/92 100 11/26/17 21:24 97.9 F 67 14 159/77 92 11/26/17 16:24 96.7 F L 71 20 119/50 97 11/26/17 14:15 96.9 F L 56 14 127/66 98 11/26/17 13:45 96.9 F L 59 14 134/69 98 11/26/17 13:15 96.9 F L 60 14 123/67 97 11/26/17 12:45 96.2 F L 61 14 115/63 92 11/26/17 12:17 97.5 F L 63 14 105/60 95 11/26/17 12:07 61 14 116/74 98 Intake and Output 11/26/17 11/27/17 11/27/17 23:59 07:59 15:59 Intake Total 100 / 100 Output Total 200 / 200 Balance -100 / -100 Intake: IV Fluids 100 / 100 Ancef 2,000 MG In 0.9 % Sodium 100 / 100 Chloride 100 ML @ 200 mls/hr IVPB Q8HR RONALD Rx#:[id number] Output: Catheter 200 / 200 Other: Meal Dinner Percent of Meal Consumed 35% Blood Glucose* 148 131 131 - Labs CBC & BMP: 11/27/17 00:44 11/27/17 00:44 Labs: Abnormal lab results WBC 12.0 K/mcL (4.3-11.1) H 11/27/17 00:44 Neutrophils # 10.0 K/mcL (1.6-8.9) H 11/27/17 00:44 PT 13.2 Seconds (9.4-12.1) H 11/25/17 21:24 Sodium 131 mEq/L (136-145) L 11/27/17 00:44 Chloride 94 mEq/L (98-107) L 11/27/17 00:44 Est GFR ( Amer) 58 (> 60) L 11/27/17 00:44 Est GFR (Non-Af Amer) 48 (> 60) L 11/27/17 00:44 Glucose 126 mg/dL (70-105) H 11/27/17 00:44 POC Glucose 148 mg/dL (70-99) H 11/26/17 21:31 Calculated Osmolality 277 (280-300) L 11/27/17 00:44 B-Natriuretic Peptide 376 pg/mL (Less than 100) H 11/26/17 05:22 - VTE Documentation of Mechanical Device: Intermittent pneumatic compression device Consult Discharge Plan - Plan Referrals: Chaz Pepe MD [Primary Care Provider] -
[2017-11-27] MEDS: Ascorbic Acid 500 MG TABLET PO SCH ×2 (16:04→19:29)
[2017-11-27] MEDS: Apixaban 5 MG TABLET PO SCH ×2 (16:05→21:44)
[2017-11-27] MEDS: Multivit/Ca/Min/Fe/FA 1 TAB TABLET PO SCH (16:05)
[2017-11-27] MEDS: amLODIPine 5 MG TABLET PO SCH (16:24)
[2017-11-27] MEDS: Metoprolol XL (24 HR) Succ 50 MG TAB.ER.24H PO SCH (16:24)
[2017-11-27] MEDS ORDERED: *HR* Labetalol 20 MG/4 ML SYRINGE IVP PRN (16:31)
--- NOTE | 2017-11-27 17:27 | Electrocardiograph Report ---
[address] [place] [address] Test Date: 2017-11-25 Pat Name: MICHAEL Dove Department: 103 Room: [facility] Gender: Unknown Regional Cra: : 1930 Requested By: Order Number: [id number] Reading MD: Riana Ugalde Measurements Intervals [place] Rate: 95 P: [place]: 0 QRS: 54 QRSD: 72 T: 16 QT: 314 QTc: 367 Interpretive Statements ATRIAL FIBRILLATION SEPTAL MYOCARDIAL INFARCTION [40+ ms Q WAVE IN V1/V2], PROBABLY OLD Electronically Signed On 11-27-2017 17:26:23 EDT by Riana Ugalde
--- NOTE | 2017-11-27 17:32 | Electrocardiograph Report ---
[place] [address] Test Date: 2017-11-26 Pat Name: Maylin Dove Department: 114 Room: [facility] Gender: F Customer Service Dispatcher: [id number] : 1930 Requested By: Neel Lamar Order Number: [id number] Reading MD: Riana Ugalde Measurements Intervals [place] Rate: 96 P: MD: 0 QRS: 48 QRSD: 71 T: 27 QT: 309 QTc: 363 Interpretive Statements ATRIAL FIBRILLATION LOW QRS VOLTAGE IN PRECORDIAL LEADS SEPTAL MYOCARDIAL INFARCTION, PROBABLY OLD Electronically Signed On 11-27-2017 17:30:52 EDT by Riana Ugalde
[2017-11-27] MEDS: Ringers Solution, Lactated 1,000 ML IVC SCH (21:44)
[2017-11-28 01:45] LABS: Basophils # 0.1 K/mcL (0.0-0.2); Basophils % 0.4 %; Eosinophils # 0.7 K/mcL (0.0-0.6); Eosinophils % 4.8 %; Hematocrit 41.4 % (35.3-44.9); Hemoglobin 14.1 g/dL (11.5-15.4); Immature Granulocytes % 0.5 % (0-4); Lymphocytes # 1.1 K/mcL (0.6-4.6); Lymphocytes % 7.6 %; Mean Corpuscular HGB Conc 34.1 g/dL (31.6-35.5); Mean Corpuscular Volume 93.9 fL (83.0-100.0); Mean Platelet Volume 11.7 fL (9.4-12.4); Monocytes # 1.2 K/mcL (0.0-1.3); Monocytes % 8.7 %; Neutrophils # 10.8 K/mcL (1.6-8.9); Platelet Count 160 K/mcL (140-400); Red Blood Count 4.41 M/mcL (3.82-4.97); Red Cell Distribution Width 13.6 % (11.5-14.5)
[2017-11-28 06:19] LABS: BUN/Creatinine Ratio 37 (6-26); Blood Urea Nitrogen 34 mg/dL (8-23); Calcium 8.8 mg/dL (8.6-10.3); Carbon Dioxide 23 mEq/L (23-29); Chloride 98 mEq/L (98-107); Glucose 170 mg/dL (70-105); Osmolality,Calculated 280 (280-300); Potassium 4.6 mEq/L (3.5-5.1); Sodium 129 mEq/L (136-145); eGFR For Non-African Americans 57 (> 60)
[2017-11-28] MEDS: Insulin LISPRO 300 UNITS/3 ML VIAL SQ SCH ×3 (09:04→17:41)
[2017-11-28] MEDS: Ascorbic Acid 500 MG TABLET PO SCH ×2 (09:10→17:39)
[2017-11-28] MEDS: Multivit/Ca/Min/Fe/FA 1 TAB TABLET PO SCH (09:11)
[2017-11-28] MEDS: Apixaban 5 MG TABLET PO SCH ×2 (09:11→21:22)
[2017-11-28] MEDS: Metoprolol XL (24 HR) Succ 50 MG TAB.ER.24H PO SCH (09:11)
[2017-11-28] MEDS: amLODIPine 5 MG TABLET PO SCH (09:11)
--- NOTE | 2017-11-28 10:24 | Internal Med Progress Note ---
<SonaliGregorio Alexandro - Last Filed: 11/28/17 16:23> Hospitalist Progress Note - Encounter Date of Encounter: 11/28/17 Time of Encounter: 10:22 - Subjective Interval History: 87 year old female with PMHx of afib on eliquis + CAD + DM + HLD + HTN is post- op day 2 for left hip hemiarthroplasty after fall. Patient states she is doing well with no complaints. Patient's pain is well controlled. Patient given temazepam 2 nights ago for agitation which made her very drowsy yesterday. Patient had a similar agitation event last night, but nurse said it wasn't bad enough to warrant another dose of temazepam. Patient denies SERRANO, SOB, CP, numbness/tingling. - Exam Vitals: Temp Pulse Resp BP Pulse Ox 98.1 F 95 16 160/87 99 11/28/17 06:41 11/28/17 06:41 11/28/17 06:41 11/28/17 06:41 11/28/17 06:41 Exam: Gen: no acute distress, A&O x 3 Heart: irregular rhythm, normal rate Lungs: clear to auscultation bilaterally, no wheezes Abdomen: non-tender, non-distended, soft Extremities: pulses +2 in LE bilaterally, sensation intact in LE bilaterally, no edema MSK: dressing over surgical site clean/dry/intact Patient now on room air - Assessment and Plan (1) Femoral neck fracture Current Visit: Yes Status: Acute Comments: Post-op day 2 for left hemiarthroplasty. Pain controlled with medication Patient will need rehab with PT/OT evaluation (2) Atrial fibrillation with slow ventricular response Current Visit: Yes Status: Chronic Assessment and Plan: Patient was in atrial fibrillation on my exam. On metoprolol for rate control. On eliquis for DVT prophylaxis. (3) Hypertension Current Visit: Yes Status: Chronic Assessment and Plan: Patient's current blood pressure is 160/87. Continue labetalol 10 mg daily. (4) Hyponatremia Current Visit: Yes Status: Acute Comments: Patient's sodium downtrending 133 > 129. Patient received 1 L of LR and 1 L of NS yesterday. Will hold off on fluids for now and monitor sodium level. No evidence of altered mental status. (5) Diabetes mellitus type 2 in nonobese Current Visit: No Status: Chronic Assessment and Plan: Patients blood glucose down trending. Insulin held yesterday. (6) HLD (hyperlipidemia) Current Visit: No Status: Chronic Assessment and Plan: Patient on simvastatin at home. No further intervention at this time. DVT Prophylaxis: Eliquis - Time Spent with Patient Total time spent is greater than 50% in coordination of care (as documented) at patient's floor/unit and/or counseling patient: 25 - 35 minutes Plan of Care Discussed with: family Internal Medicine: Result - Labs CBC & Chem 7: 11/28/17 01:01 11/28/17 05:44 Labs: Short CBC 11/28/17 Range/Units 01:01 WBC 13.8 H (4.3-11.1) K/mcL Hgb 14.1 (11.5-15.4) g/dL Hct 41.4 (35.3-44.9) % Plt Count 160 (140-400) K/mcL Neutrophils # 10.8 H (1.6-8.9) K/mcL BMP 11/28/17 05:44 Sodium 129 L Potassium 4.6 Chloride 98 Carbon Dioxide 23 BUN 34 H Creatinine 0.93 Glucose 170 H Calcium 8.8 - ABG Interpretation ABG results: PT/INR, D-dimer PT 13.2 Seconds (9.4-12.1) H 11/25/17 21:24 - VTE Documentation of Mechanical Device: Intermittent pneumatic compression device Consult Discharge Plan - Plan Referrals: Chaz Pepe MD [Primary Care Provider] - <Esperanza Navarro - Last Filed: 11/28/17 17:32> Hospitalist Progress Note - Encounter Date of Encounter: 11/28/17 - Exam Vitals: Temp Pulse Resp BP Pulse Ox 99.1 F 83 16 154/72 97 11/28/17 16:30 11/28/17 16:30 11/28/17 16:30 11/28/17 16:30 11/28/17 16:30 - Assessment and Plan (1) Hypertension Current Visit: Yes Status: Chronic (2) Non-insulin dependent type 2 diabetes mellitus Current Visit: No Status: Chronic (3) DVT prophylaxis Current Visit: No Status: Acute (4) Atrial fibrillation Current Visit: Yes Status: Acute (5) Femoral neck fracture Current Visit: Yes Status: Acute Comments: Post-op day 2 for left hemiarthroplasty. Pain controlled with medication Patient will need rehab with PT/OT evaluation (6) Delirium Current Visit: Yes Status: Acute (7) Dehydration Current Visit: Yes Status: Acute - Time Spent with Patient Total time spent is greater than 50% in coordination of care (as documented) at patient's floor/unit and/or counseling patient: Internal Medicine: Result - Labs CBC & Chem 7: 11/28/17 01:01 11/28/17 05:44 Labs: Short CBC 11/28/17 Range/Units 01:01 WBC 13.8 H (4.3-11.1) K/mcL Hgb 14.1 (11.5-15.4) g/dL Hct 41.4 (35.3-44.9) % Plt Count 160 (140-400) K/mcL Neutrophils # 10.8 H (1.6-8.9) K/mcL BMP 11/28/17 05:44 Sodium 129 L Potassium 4.6 Chloride 98 Carbon Dioxide 23 BUN 34 H Creatinine 0.93 Glucose 170 H Calcium 8.8 - ABG Interpretation ABG results: PT/INR, D-dimer PT 13.2 Seconds (9.4-12.1) H 11/25/17 21:24 - Attending Attestation I have seen and examined this patient independently. I have discussed with resident physician Dr. Lyon regarding the management plan. Agree with the documentation. <Gregorio Lyon - Last Filed: 11/28/17 16:23> (1) Femoral neck fracture Qualifiers: Encounter type: initial encounter Fracture type: closed Laterality: left Qualified Code(s): S72.002A - Fracture of unspecified part of neck of left femur , initial encounter for closed fracture (3) Hypertension Qualifiers: Hypertension type: unspecified Qualified Code(s): I10 - Essential (primary) hypertension (6) HLD (hyperlipidemia) Qualifiers: Hyperlipidemia type: unspecified Qualified Code(s): E78.5 - Hyperlipidemia, unspecified <NavarroEsperanza - Last Filed: 11/28/17 17:32> (1) Hypertension Qualifiers: Hypertension type: unspecified Qualified Code(s): I10 - Essential (primary) hypertension (4) Atrial fibrillation Qualifiers: Atrial fibrillation type: unspecified Qualified Code(s): I48.91 - Unspecified atrial fibrillation (5) Femoral neck fracture Qualifiers: Encounter type: initial encounter Fracture type: closed Laterality: left Qualified Code(s): S72.002A - Fracture of unspecified part of neck of left femur , initial encounter for closed fracture
[2017-11-28] MEDS: *HR* OxyCODONE/APAP 5/325 TABLET PO PRN (21:23)
[2017-11-29 01:21] LABS: Basophils % 0.3 %; Eosinophils # 0.3 K/mcL (0.0-0.6); Hematocrit 38.3 % (35.3-44.9); Hemoglobin 12.9 g/dL (11.5-15.4); Immature Granulocytes % 0.6 % (0-4); Lymphocytes # 1.1 K/mcL (0.6-4.6); Lymphocytes % 7.3 %; Mean Corpuscular HGB Conc 33.7 g/dL (31.6-35.5); Mean Corpuscular Hemoglobin 30.9 pg (28.0-33.3); Mean Corpuscular Volume 91.6 fL (83.0-100.0); Mean Platelet Volume 11.6 fL (9.4-12.4); Monocytes # 1.3 K/mcL (0.0-1.3); Monocytes % 8.7 %; Neutrophils # 11.6 K/mcL (1.6-8.9); Platelet Count 177 K/mcL (140-400); Red Blood Count 4.18 M/mcL (3.82-4.97); Red Cell Distribution Width 13.6 % (11.5-14.5); Segmented Neutrophils % 81.1 %
[2017-11-29 01:40] LABS: BUN/Creatinine Ratio 45 (6-26); Blood Urea Nitrogen 34 mg/dL (8-23); Calcium 8.7 mg/dL (8.6-10.3); Carbon Dioxide 26 mEq/L (23-29); Chloride 97 mEq/L (98-107); Glucose 204 mg/dL (70-105); Osmolality,Calculated 283 (280-300); Potassium 4.5 mEq/L (3.5-5.1); Sodium 130 mEq/L (136-145); eGFR For Non-African Americans > 60 (> 60)
[2017-11-29 01:51] LABS: Thyroid Stimulating Hormone 2.125 mcIU/mL (0.340-5.600)
[2017-11-29] MEDS: Metoprolol XL (24 HR) Succ 50 MG TAB.ER.24H PO SCH (08:36)
[2017-11-29] MEDS: amLODIPine 5 MG TABLET PO SCH (08:36)
[2017-11-29] MEDS: Multivit/Ca/Min/Fe/FA 1 TAB TABLET PO SCH (08:36)
[2017-11-29] MEDS: Apixaban 5 MG TABLET PO SCH (08:36)
[2017-11-29] MEDS: Ascorbic Acid 500 MG TABLET PO SCH ×2 (08:37→18:17)
[2017-11-29] MEDS: Insulin LISPRO 300 UNITS/3 ML VIAL SQ SCH ×3 (08:42→18:13)
--- NOTE | 2017-11-29 14:03 | Discharge Summary ---
Date of Encounter: 11/29/17 Time of Encounter: 13:54 - Discharge Diagnosis (1) Femoral neck fracture Priority: Primary Status: Acute Assessment and Plan: Patient is post-op day 3 for left hip hemiarthropathy Patient's pain well controlled with percoset No complications Discharge to [facility] for PT/OT rehab Qualifiers: Encounter type: initial encounter Fracture type: closed Laterality: left Qualified Code(s): S72.002A - Fracture of unspecified part of neck of left femur, initial encounter for closed fracture (2) Atrial fibrillation with slow ventricular response Priority: Primary Status: Chronic Assessment and Plan: Continue metoprolol for rate control Continue eliquis for PE prophylaxis (3) Hypertension Priority: Secondary Status: Chronic Assessment and Plan: Blood pressure 134/83 today Continue losartan Continue amlodipine Qualifiers: Hypertension type: unspecified Qualified Code(s): I10 - Essential (primary ) hypertension (4) Hyponatremia Priority: Secondary Status: Acute Assessment and Plan: Patient's sodium was 130 today Trending upward Likely overhydrated - IV fluids were stopped yesterday (5) Diabetes mellitus type 2 in nonobese Priority: Secondary Status: Chronic (6) HLD (hyperlipidemia) Priority: Secondary Status: Chronic Assessment and Plan: Patient on simvastatin Qualifiers: Hyperlipidemia type: unspecified Qualified Code(s): E78.5 - Hyperlipidemia , unspecified Hospital course: Ms. Dove is a 87 year old female with PMHx of afib on eliquis + DM + HLD + HTN who presented to [facility] ED after a fall. X-ray showed a left femoral head fracture that required surgery. Patient had no complications from surgery and pain was well controlled with medication. Patient had one overnight event in which she became agitated and was treated with 0.5 mg ativan. Patient was in atrial fibrillation during the hospital course, which was managed with metoprolol and eliquis. She was also given labetalol, losartan, and amlodipine for blood pressure control. Patient is now post-op day 3 from surgery and will be discharged to [facility] for PT/OT rehab. She was given prescriptions for percocet and ativan for 2 days. Discharge discussed with: patient, family, nurse - Time Spent with Patient Total time spent providing and/or coordinating discharge services: Less than 30 minutes - Discharge Medications Prescriptions: OxyCODONE/APAP 5/325 [Percocet 5/325 MG] 1 each PO Q6HR PRN 2 Days #8 tablet PRN Reason: POST-OP Moderate Pain Docusate [Colace] 100 mg PO BID #60 capsule Ferrous Sulfate 325 mg PO BIDWM #60 tablet LORazepam [Ativan] 0.5 mg PO HS PRN 2 Days #2 tablet PRN Reason: Anxiety Home Medications: Furosemide [Lasix] 40 mg PO DAILY PRN 01/09/15 [History] Levothyroxine [Synthroid] 150 mcg PO QAM 01/09/15 [History] Losartan [Cozaar] 100 mg PO QAM 01/09/15 [History] Metformin [Glucophage] 500 mg PO BID 01/09/15 [History] Metoprolol XL (24 HR) Succ [Toprol XL] 50 mg PO QAM 01/09/15 [History] Potassium Chloride 10 meq PO QAM 01/09/15 [History] Amlodipine [Norvasc] 2.5 mg PO DAILY 04/30/15 [History] Simvastatin [Zocor] 20 mg PO DAILY 04/30/15 [History] Apixaban [Eliquis] 2.5 mg PO BID 60 Days tablet 05/03/15 [Rx] Docusate [Colace] 100 mg PO BID #60 capsule 11/29/17 [Rx] Ferrous Sulfate 325 mg PO BIDWM #60 tablet 11/29/17 [Rx] LORazepam [Ativan] 0.5 mg PO HS PRN 2 Days #2 tablet 11/29/17 [Rx] OxyCODONE/APAP 5/325 [Percocet 5/325 MG] 1 each PO Q6HR PRN 2 Days #8 tablet 05/18 [Rx] Allergies/Adverse Reactions: 3 Allergy/AdvReac Type Severity Reaction Status Date / Time Sulfa (Sulfonamide Allergy Hives Verified 01/09/15 18:17 Antibiotics) Date of admission: 11/26/17 11:19 Primary care physician: Chaz Pepe MD Discharging clinician: Gregorio Lyon Anticipated date of discharge: 11/29/17 - Constitutional Vitals: Temp Pulse Resp BP Pulse Ox 98.5 F 86 16 134/83 96 11/29/17 06:29 11/29/17 06:29 11/29/17 06:29 11/29/17 06:29 11/29/17 06:29 General appearance: Present: cooperative, A&O X 3, pleasant, no acute distress, answers questions appropriately - Respiratory Respiratory exam: Present: CTAB - Cardiovascular Cardiovascular exam: Present: irregular rhythm, +S1 - Extremities Exam Extremities exam: Present: normal inspection, warm, radial pulses palpable and symmetrical Additional comments: Neurovascularly intact - Expanded Lower Extremities Exam Lower Leg exam: Present: normal inspection Ankle exam: Present: normal inspection Neuro vascular tendon exam: Present: no vascular compromise - Incison Incision: Present: clean and dry, intact Comments: On left hip - Patient Status Disposition: Transfer SNF Condition: Good Overall status at discharge: patient is progressing back to baseline - Discharge Instructions Follow Up With: Chaz Pepe MD [Primary Care Provider] - - Diet and Activity Activity: as per physical therapy Diet: regular diet - VTE Documentation of Mechanical Device: Intermittent pneumatic compression device
[2017-11-29] MEDS: *HR* OxyCODONE/APAP 5/325 TABLET PO PRN (14:13)
[2017-11-29 16:18] VITALS: BP 129/83
--- NOTE | 2017-11-29 16:37 | Event Note ---
Date of Encounter: 11/29/17 Time of Encounter: 09:00 I have seen and examined this patient independently. I have discussed with resident physician Dr. Lyon regarding the discharge and follow-up plan. Details please refer to his note.
--- NOTE | 2017-11-29 16:39 | Physician Discharge Referral ---
ExtendedCare Referral Info Transfer To: SNF Provider in Charge after Transfer: PCP Institutional Level of Care: Skilled - Diagnosis (1) Femoral neck fracture Status: Acute (2) Atrial fibrillation with slow ventricular response Priority: Primary Status: Chronic (3) Hypertension Priority: Secondary Status: Chronic (4) Hyponatremia Priority: Secondary Status: Acute (5) Diabetes mellitus type 2 in nonobese Priority: Secondary Status: Chronic (6) HLD (hyperlipidemia) Priority: Secondary Status: Chronic - Transfer Medications Prescriptions: OxyCODONE/APAP 5/325 [Percocet 5/325 MG] 1 each PO Q6HR PRN 2 Days #8 tablet PRN Reason: POST-OP Moderate Pain Docusate [Colace] 100 mg PO BID #60 capsule Ferrous Sulfate 325 mg PO BIDWM #60 tablet LORazepam [Ativan] 0.5 mg PO HS PRN 2 Days #2 tablet PRN Reason: Anxiety Home Medications: Furosemide [Lasix] 40 mg PO DAILY PRN 01/09/15 [History] Levothyroxine [Synthroid] 150 mcg PO QAM 01/09/15 [History] Losartan [Cozaar] 100 mg PO QAM 01/09/15 [History] Metformin [Glucophage] 500 mg PO BID 01/09/15 [History] Metoprolol XL (24 HR) Succ [Toprol XL] 50 mg PO QAM 01/09/15 [History] Potassium Chloride 10 meq PO QAM 01/09/15 [History] Amlodipine [Norvasc] 2.5 mg PO DAILY 04/30/15 [History] Simvastatin [Zocor] 20 mg PO DAILY 04/30/15 [History] Apixaban [Eliquis] 2.5 mg PO BID 60 Days tablet 05/03/15 [Rx] Docusate [Colace] 100 mg PO BID #60 capsule 11/29/17 [Rx] Ferrous Sulfate 325 mg PO BIDWM #60 tablet 11/29/17 [Rx] LORazepam [Ativan] 0.5 mg PO HS PRN 2 Days #2 tablet 11/29/17 [Rx] OxyCODONE/APAP 5/325 [Percocet 5/325 MG] 1 each PO Q6HR PRN 2 Days #8 tablet 05/18 [Rx] Allergies/Adverse Reactions: 3 Allergy/AdvReac Type Severity Reaction Status Date / Time Sulfa (Sulfonamide Allergy Hives Verified 01/09/15 18:17 Antibiotics) - Respiratory Orders Smoking Cessation: Smoking cessation has been advised. For more information, call the [place] Tobacco Quit Line at 2-353-SSFZ-NOW. - Advance Directives Code Status: Full Code - Mobility Orders Ambulate - Rehabiliation Orders Rehab Orders: Evaluation for Physical Therapy, Evaluation for Occupational Therapy - Diet Orders Regular CERTIFICATION: I certify that the transfer of the above named patient to an Extended Care Facility is necessary for the continuing treatment of the diagnosis listed. The above information is true and accurate reflection of patient's current condition. Confidential - Redisclosure prohibited without a patient's written consent.
== END 2017-11-29 19:03 | DRG 470 ==
LOC: 3NENU 19:56 → EMEROO 19:56 → SUATTDRO 22:22 → 3NENU 23:26 → SUATTDRO 11-26 11:19
PROVIDERS: ADMIT Family Medicine; ATTEND Internal Medicine

== ENCOUNTER 2018-01-08 09:14 | Inpatient (IN) ==
--- NOTE | 2018-01-08 09:39 | Emergency Department Note ---
Disposition Clinical Impression: Constipation by delayed colonic transit, Colitis, Lactate blood increase Leukocytosis Qualifiers: Leukocytosis type: unspecified Qualified Code(s): D72.829 - Elevated white blood cell count, unspecified Disposition: Admitted As Inpatient Condition: Fair Time of Disposition: 12:26 Abdominal Pain HPI - General Chief Complaint: ED Abdominal Pain Stated Complaint: bowel impaction Time Seen by Provider: 01/08/18 09:16 Source: patient, EMS Nursing Notes Reviewed: Yes Vital Signs Reviewed: Yes - History of Present Illness HPI Narrative: Patient is an 87-year-old female who presents to [facility] ED via EMS from [facility] with concern for 5 days of no bowel movements. Patient has been on milk of magnesia for the last 2 days without any relief. She has become more distended. Family notes that she also seems slightly more confused than normal. She does have a history of dementia which has been steadily worsening as well. Patient currently denying any symptoms to me. Denies any chest pain, difficulty breathing, abdominal pain, problems with urination. Her daughter who is the power of district attorney states that patient has very poor short-term memory. Onset (ago): day(s) (5) Consistency: constant Pain Scale: 0 Quality: fullness Improves with: nothing Worsens with: nothing Associated symptoms: Reports: constipation. Denies: nausea, vomiting, fever, chills Treatments prior to arrival: prescription analgesics - Related Data Home Medications Medication Instructions Recorded Confirmed Furosemide [Lasix] 40 mg PO DAILY PRN 01/09/15 01/08/18 Levothyroxine [Synthroid] 150 mcg PO QAM 01/09/15 01/08/18 Losartan [Cozaar] 100 mg PO QAM 01/09/15 01/08/18 Metformin [Glucophage] 500 mg PO BID 01/09/15 01/08/18 Metoprolol XL (24 HR) Succ [Toprol 50 mg PO QAM 01/09/15 01/08/18 XL] Amlodipine [Norvasc] 2.5 mg PO DAILY 04/30/15 01/08/18 Simvastatin [Zocor] 20 mg PO DAILY 04/30/15 01/08/18 Calcium Carbonate [Calcium] 500 mg PO BID 01/08/18 01/08/18 Lactulose [Enulose] 20 gm PO BID 01/08/18 01/08/18 Midodrine HCl 2.5 mg PO TID 01/08/18 01/08/18 Previous Rx's Medication Instructions Recorded Apixaban [Eliquis] 2.5 mg PO BID 60 Days tablet 05/03/15 Docusate [Colace] 100 mg PO BID #60 capsule 11/29/17 Ferrous Sulfate 325 mg PO BIDWM #60 tablet 11/29/17 LORazepam [Ativan] 0.5 mg PO HS PRN 2 Days #2 tablet 11/29/17 OxyCODONE/APAP 5/325 [Percocet 1 each PO Q6HR PRN 2 Days #8 tablet 11/29/17 5/325 MG] Allergies Allergy/AdvReac Type Severity Reaction Status Date / Time Sulfa (Sulfonamide Allergy Hives Verified 01/09/15 18:17 Antibiotics) All systems ED: reviewed and negative except as stated. Abdominal Pain PMH - Past Medical History Medical history: Reports: coronary artery disease, diabetes, hyperlipidemia, hypertension, RA Female Surgical History: Reports: other [employer] history: Reports: non-contributory Psychiatric history: Reports: no psych history - Social History Smoking status: Never smoker Alcohol use: Reports: none Drug use: Reports: none Physical Exam - General Limitations: no limitations General appearance: alert, in no apparent distress - Head Head exam: atraumatic, normocephalic, normal inspection - Eye Eye exam: Present: EOMI - ENT ENT exam: normal exam, normal oropharynx, mucous membranes moist - Neck Neck exam: Present: normal inspection, full ROM, trachea midline - Chest Chest inspection: Present: normal inspection, symmetric chest wall rise - Respiratory Respiratory exam: Present: normal lung sounds bilaterally - Cardiovascular Cardiovascular exam: Present: regular rate, normal rhythm, normal heart sounds - Abdominal Exam Abdominal exam: Present: soft, distention, diminished bowel sounds - Extremities Exam Extremities exam: Present: normal inspection, full ROM. Absent: tenderness, pedal edema - Neurological Exam Neurological exam: Present: alert, oriented X3 - Psychiatric Psychiatric exam: Present: normal affect, normal mood - Skin Skin exam: Present: warm Course Course Narrative: Patient seen and examined. Patient with no bowel movement for the past 5 days. There are some reports of possible increasing confusion though patient does have baseline dementia as well. She has also not been eating or drinking as much as she normally does and has had about a 10 pound weight loss since her surgery last month. Abdominal lab work, urine analysis, CT of the abdomen and pelvis ordered. - Reevaluation(s) Reevaluation #1: Patient's lab work shows a leukocytosis of 27,000, lactic acidosis over 5. Her CT of the abdomen and pelvis shows signs of fecal impaction with signs of colitis and possible partial bowel obstruction. Patient was manually disimpacted and a large amount of stool was evacuated from the rectal vault. Patient was given the milk of molasses enema following this. Patient started on Zosyn to cover for colitis. A stool sample was sent for a GI panel. We will give a liter of fluids as well. Discussed with the hospitalist Dr. Odom for admission. She would also like surgery consult due to the lactic acidosis and concern for possible bowel obstruction. I discussed with the surgeon Dr. Balbuena who will see the patient in consultation. He would also like coags ordered. Time: 14:25 Vital Signs Temperature 98.3 F 01/08/18 09:17 Pulse Rate 65 01/08/18 09:17 Respiratory Rate 16 01/08/18 09:17 Blood Pressure 164/77 01/08/18 09:17 O2 Sat by Pulse Oximetry 97 01/08/18 09:17 Temperature 98.3 F 01/08/18 09:17 Pulse Rate 65 01/08/18 09:17 Respiratory Rate 16 01/08/18 09:17 Blood Pressure 164/77 01/08/18 09:17 O2 Sat by Pulse Oximetry 97 01/08/18 09:17 Oxygen Delivery Oxygen Delivery Room Air Abdominal Pain - Medical Records Medical records reviewed: Yes I reviewed the patient's medical records. - Lab Data Lab results reviewed: Yes I reviewed the patient's lab results. Result diagrams: 01/08/18 10:20 01/08/18 10:20 Lab Results 01/08/18 01/08/18 01/08/18 Range/Units 10:20 10:20 10:20 WBC 27.8 H (4.3-11.1) K/mcL RBC 4.58 (3.82-4.97) M/mcL Hgb 14.6 (11.5-15.4) g/dL Hct 43.9 (35.3-44.9) % MCV 95.9 (83.0-100.0) fL MCH 31.9 (28.0-33.3) pg MCHC 33.3 (31.6-35.5) g/dL RDW 15.1 H (11.5-14.5) % Plt Count 386 (140-400) K/mcL MPV 9.9 (9.4-12.4) fL Immature Gran % 1.2 (0-4) % Seg Neutrophils % 94.3 % Lymphocytes % 1.3 % Monocytes % 3.0 % Eosinophils % 0.0 % Basophils % 0.2 % Neutrophils # 26.2 H (1.6-8.9) K/mcL Lymphocytes # 0.4 L (0.6-4.6) K/mcL Monocytes # 0.8 (0.0-1.3) K/mcL Eosinophils # 0.0 (0.0-0.6) K/mcL Basophils # 0.1 (0.0-0.2) K/mcL Platelet Estimate Normal (Normal) PT (9.4-12.1) Seconds INR APTT (26.0-36.0) Seconds Sodium 134 L (136-145) mEq/L Potassium 3.5 (3.5-5.1) mEq/L Chloride 90 L (98-107) mEq/L Carbon Dioxide 30 H (23-29) mEq/L BUN 21 (8-23) mg/dL Creatinine 0.88 (0.60-1.20) mg/dL Est GFR ( Amer) > 60 (> 60) Est GFR (Non-Af Amer) > 60 (> 60) BUN/Creatinine Ratio 24 (6-26) Glucose 264 H (70-105) mg/dL Calculated Osmolality 290 (280-300) Lactic Acid 5.8 H* (0.5-2.2) mmol/L Calcium 9.7 (8.6-10.3) mg/dL Total Bilirubin 1.1 H (0.3-1.0) mg/dL Direct Bilirubin 0.4 H (0.0-0.2) mg/dL Indirect Bilirubin 0.7 (0.0-1.2) mg/dL AST 18 (13-39) Units/L ALT 16 (7-52) Units/L Alkaline Phosphatase 123 H (34-104) Units/L Serum Total Protein 6.9 (6.4-8.9) g/dL Albumin 3.7 (3.5-5.7) g/dL Globulin 3.2 (2.4-3.5) g/dL Albumin/Globulin Ratio 1.2 (1.1-2.2) Lipase < 3 L (11-82) Units/L Stl C. cayetanensis PCR (Not detect) Stool Rotavirus A PCR (Not detect) Stl Adenov F 40/41 PCR (Not detect) Stool Astrovirus (PCR) (Not detect) Stool Campylobacter PCR (Not detect) Stl C. diff Tox A/B PCR (Not detect) Stool Cryptosporidium PCR (Not detect) Stl Sh Tox Pr E STEC PCR (Not detect) Stool E coli O157 PCR (Not detect) Stl Enterotoxigenic E PCR (Not detect) Stool EPEC (PCR) (Not detect) Stool EAEC (PCR) (Not detect) Stl E. histolytica PCR (Not detect) Stool Giardia Lamblia PCR (Not detect) Stool Salmonella PCR (Not detect) Stool Sapovirus (PCR) (Not detect) Stl P. shigelloides PCR (Not detect) Stl Shigella/EIEC PCR (Not detect) St Y.enterocolitica PCR (Not detect) Stool Vibrio (PCR) (Not detect) Stl Vibrio cholerae PCR (Not detect) Stl Norovirus GI/GII PCR (Not detect) Stl GI Panel (PCR) [facility] 01/08/18 01/08/18 Range/Units 10:20 11:33 WBC (4.3-11.1) K/mcL RBC (3.82-4.97) M/mcL Hgb (11.5-15.4) g/dL Hct (35.3-44.9) % MCV (83.0-100.0) fL MCH (28.0-33.3) pg MCHC (31.6-35.5) g/dL RDW (11.5-14.5) % Plt Count (140-400) K/mcL MPV (9.4-12.4) fL Immature Gran % (0-4) % Seg Neutrophils % % Lymphocytes % % Monocytes % % Eosinophils % % Basophils % % Neutrophils # (1.6-8.9) K/mcL Lymphocytes # (0.6-4.6) K/mcL Monocytes # (0.0-1.3) K/mcL Eosinophils # (0.0-0.6) K/mcL Basophils # (0.0-0.2) K/mcL Platelet Estimate (Normal) PT 20.9 H (9.4-12.1) Seconds INR 1.9 APTT 32.1 (26.0-36.0) Seconds Sodium (136-145) mEq/L Potassium (3.5-5.1) mEq/L Chloride (98-107) mEq/L Carbon Dioxide (23-29) mEq/L BUN (8-23) mg/dL Creatinine (0.60-1.20) mg/dL Est GFR ( Amer) (> 60) Est GFR (Non-Af Amer) (> 60) BUN/Creatinine Ratio (6-26) Glucose (70-105) mg/dL Calculated Osmolality (280-300) Lactic Acid (0.5-2.2) mmol/L Calcium (8.6-10.3) mg/dL Total Bilirubin (0.3-1.0) mg/dL Direct Bilirubin (0.0-0.2) mg/dL Indirect Bilirubin (0.0-1.2) mg/dL AST (13-39) Units/L ALT (7-52) Units/L Alkaline Phosphatase (34-104) Units/L Serum Total Protein (6.4-8.9) g/dL Albumin (3.5-5.7) g/dL Globulin (2.4-3.5) g/dL Albumin/Globulin Ratio (1.1-2.2) Lipase (11-82) Units/L Stl C. cayetanensis PCR Not detected (Not detect) Stool Rotavirus A PCR Not detected (Not detect) Stl Adenov F 40/41 PCR Not detected (Not detect) Stool Astrovirus (PCR) Not detected (Not detect) Stool Campylobacter PCR Not detected (Not detect) Stl C. diff Tox A/B PCR Not detected (Not detect) Stool Cryptosporidium PCR Not detected (Not detect) Stl Sh Tox Pr E STEC PCR Not detected (Not detect) Stool E coli O157 PCR Not detected (Not detect) Stl Enterotoxigenic E PCR Not detected (Not detect) Stool EPEC (PCR) Not detected (Not detect) Stool EAEC (PCR) Not detected (Not detect) Stl E. histolytica PCR Not detected (Not detect) Stool Giardia Lamblia PCR Not detected (Not detect) Stool Salmonella PCR Not detected (Not detect) Stool Sapovirus (PCR) Not detected (Not detect) Stl P. shigelloides PCR Not detected (Not detect) Stl Shigella/EIEC PCR Not detected (Not detect) St Y.enterocolitica PCR Not detected (Not detect) Stool Vibrio (PCR) Not detected (Not detect) Stl Vibrio cholerae PCR Not detected (Not detect) Stl Norovirus GI/GII PCR Not detected (Not detect) Stl GI Panel (PCR) Com See below - Radiology Data Radiology results reviewed: Yes I reviewed the patient's radiology results. Abdomen/Pelvis CT 01/08/18 09:29 IMPRESSION: 1. Moderate amount of stool in the rectosigmoid colon with pericolonic stranding suggestive of stercoral colitis. Infectious or inflammatory colitis could also be a possibility. There is focal narrowing of the midsigmoid colon adjacent to a partially calcified structure of uncertain etiology. No comparison exams are available. A partial obstruction is not excluded, however the more upstream colon is not significantly dilated. No pneumatosis or free air. 2. Bilateral inguinal hernias containing nonobstructed loop of bowels. 3. Cholelithiasis with mild intra and extrahepatic biliary duct dilation. Recommend correlation with LFTs. D/ / 01/08/2018 11:16:46 Tresa Gil MD / [employer] Interpreting Provider: Tresa Gil MD
--- NOTE | 2018-01-08 10:03 | Emergency Department Note ---
Disposition Clinical Impression: Constipation by delayed colonic transit, Colitis, Lactate blood increase, Leukocytosis Disposition: Admitted As Inpatient Referrals: Marquita Nj [employer]CHIT[employer] [Primary Care Provider] - Forms: ED Satisfaction Letter, Work/School Release General Adult HPI - General Chief complaint: ED Abdominal Pain Stated complaint: bowel impaction Time Seen by Provider: 01/08/18 09:16 Source: patient, EMS Limitations: no limitations - History of Present Illness Pain Scale: 0 - Related Data Home Medications Medication Instructions Recorded Confirmed Furosemide [Lasix] 40 mg PO DAILY PRN 01/09/15 11/26/17 Levothyroxine [Synthroid] 150 mcg PO QAM 01/09/15 11/26/17 Losartan [Cozaar] 100 mg PO QAM 01/09/15 11/26/17 Metformin [Glucophage] 500 mg PO BID 01/09/15 11/26/17 Metoprolol XL (24 HR) Succ [Toprol 50 mg PO QAM 01/09/15 11/26/17 XL] Potassium Chloride 10 meq PO QAM 01/09/15 11/26/17 Amlodipine [Norvasc] 2.5 mg PO DAILY 04/30/15 11/26/17 Simvastatin [Zocor] 20 mg PO DAILY 04/30/15 11/26/17 Previous Rx's Medication Instructions Recorded Apixaban [Eliquis] 2.5 mg PO BID 60 Days tablet 05/03/15 Docusate [Colace] 100 mg PO BID #60 capsule 11/29/17 Ferrous Sulfate 325 mg PO BIDWM #60 tablet 11/29/17 LORazepam [Ativan] 0.5 mg PO HS PRN 2 Days #2 tablet 11/29/17 OxyCODONE/APAP 5/325 [Percocet 1 each PO Q6HR PRN 2 Days #8 tablet 11/29/17 5/325 MG] Allergies Allergy/AdvReac Type Severity Reaction Status Date / Time Sulfa (Sulfonamide Allergy Hives Verified 01/09/15 18:17 Antibiotics) Past Medical History - Past Medical History Medical history: Reports: coronary artery disease, diabetes, hyperlipidemia, hypertension, RA Surgical history: Reports: hysterectomy, other Psychiatric history: Reports: no psych history 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 will admit for colitis as well iv zosyn iv fluids Vital Signs Temperature 98.3 F 01/08/18 09:17 Pulse Rate 65 01/08/18 09:17 Respiratory Rate 16 01/08/18 09:17 Blood Pressure 164/77 01/08/18 09:17 O2 Sat by Pulse Oximetry 97 01/08/18 09:17 Temperature 98.3 F 01/08/18 09:17 Pulse Rate 65 01/08/18 09:17 Respiratory Rate 16 01/08/18 09:17 Blood Pressure 164/77 01/08/18 09:17 O2 Sat by Pulse Oximetry 97 01/08/18 09:17 Oxygen Delivery Oxygen Delivery Room Air Medical Decision Making - Lab Data Result diagrams: 01/08/18 10:20 01/08/18 10:20 Lab Results 01/08/18 01/08/18 01/08/18 Range/Units 10:20 10:20 10:20 WBC 27.8 H (4.3-11.1) K/mcL RBC 4.58 (3.82-4.97) M/mcL Hgb 14.6 (11.5-15.4) g/dL Hct 43.9 (35.3-44.9) % MCV 95.9 (83.0-100.0) fL MCH 31.9 (28.0-33.3) pg MCHC 33.3 (31.6-35.5) g/dL RDW 15.1 H (11.5-14.5) % Plt Count 386 (140-400) K/mcL MPV 9.9 (9.4-12.4) fL Immature Gran % 1.2 (0-4) % Seg Neutrophils % 94.3 % Lymphocytes % 1.3 % Monocytes % 3.0 % Eosinophils % 0.0 % Basophils % 0.2 % Neutrophils # 26.2 H (1.6-8.9) K/mcL Lymphocytes # 0.4 L (0.6-4.6) K/mcL Monocytes # 0.8 (0.0-1.3) K/mcL Eosinophils # 0.0 (0.0-0.6) K/mcL Basophils # 0.1 (0.0-0.2) K/mcL Platelet Estimate Normal (Normal) Sodium 134 L (136-145) mEq/L Potassium 3.5 (3.5-5.1) mEq/L Chloride 90 L (98-107) mEq/L Carbon Dioxide 30 H (23-29) mEq/L BUN 21 (8-23) mg/dL Creatinine 0.88 (0.60-1.20) mg/dL Est GFR ( Amer) > 60 (> 60) Est GFR (Non-Af Amer) > 60 (> 60) BUN/Creatinine Ratio 24 (6-26) Glucose 264 H (70-105) mg/dL Calculated Osmolality 290 (280-300) Lactic Acid 5.8 H* (0.5-2.2) mmol/L Calcium 9.7 (8.6-10.3) mg/dL Total Bilirubin 1.1 H (0.3-1.0) mg/dL Direct Bilirubin 0.4 H (0.0-0.2) mg/dL Indirect Bilirubin 0.7 (0.0-1.2) mg/dL AST 18 (13-39) Units/L ALT 16 (7-52) Units/L Alkaline Phosphatase 123 H (34-104) Units/L Serum Total Protein 6.9 (6.4-8.9) g/dL Albumin 3.7 (3.5-5.7) g/dL Globulin 3.2 (2.4-3.5) g/dL Albumin/Globulin Ratio 1.2 (1.1-2.2) Lipase < 3 L (11-82) Units/L Critical Care Time Critical Care Time: No Attestation Statement - Attestation Attestation: I examined this patient and my medical decision-making was reviewed with the Resident Physician. I agree with the documented findings, disposition and treatment plan as described except to the extent set forth below. 87-year-old female in presented to the emergency room with concerns for constipation. Patient has had some increasing abdominal distention. No bowel movement in 5 days. She tried some oral medicine to help with her bowel movements but no improvement. She has passing gas and did have a small amount of stool passed in the ER. No reports of vomiting but does have a poor by mouth intake. We will check screening lab work as well as a CT abdomen and pelvis to rule out any intra-abdominal pathology or obstruction. Febrile. She had a recent femoral neck surgery fracture back last month.
[2018-01-08 10:38] LABS: Lymphocytes % 1.3 %; Mean Corpuscular HGB Conc 33.3 g/dL (31.6-35.5); Platelet Count 386 K/mcL (140-400)
[2018-01-08 10:39] LABS: Basophils # 0.1 K/mcL (0.0-0.2); Basophils % 0.2 %; Hematocrit 43.9 % (35.3-44.9); Hemoglobin 14.6 g/dL (11.5-15.4); Immature Granulocytes % 1.2 % (0-4); Lymphocytes # 0.4 K/mcL (0.6-4.6); Mean Corpuscular Hemoglobin 31.9 pg (28.0-33.3); Mean Corpuscular Volume 95.9 fL (83.0-100.0); Mean Platelet Volume 9.9 fL (9.4-12.4); Monocytes # 0.8 K/mcL (0.0-1.3); Neutrophils # 26.2 K/mcL (1.6-8.9); Red Blood Count 4.58 M/mcL (3.82-4.97); Red Cell Distribution Width 15.1 % (11.5-14.5); Segmented Neutrophils % 94.3 %
[2018-01-08] MEDS ORDERED: Milk and Molasses Enema 200 ML RC ONE (10:49)
[2018-01-08 10:55] LABS: Alanine Aminotransferase 16 Units/L (7-52); Albumin 3.7 g/dL (3.5-5.7); Albumin/Globulin Ratio 1.2 (1.1-2.2); Alkaline Phosphatase 123 Units/L (34-104); Aspartate Amino Transferase 18 Units/L (13-39); BUN/Creatinine Ratio 24 (6-26); Bilirubin,Direct 0.4 mg/dL (0.0-0.2); Bilirubin,Indirect 0.7 mg/dL (0.0-1.2); Bilirubin,Total 1.1 mg/dL (0.3-1.0); Blood Urea Nitrogen 21 mg/dL (8-23); Calcium 9.7 mg/dL (8.6-10.3); Carbon Dioxide 30 mEq/L (23-29); Chloride 90 mEq/L (98-107); Globulin 3.2 g/dL (2.4-3.5); Glucose 264 mg/dL (70-105); Lipase < 3 Units/L (11-82); Osmolality,Calculated 290 (280-300); Potassium 3.5 mEq/L (3.5-5.1); Sodium 134 mEq/L (136-145); Total Protein 6.9 g/dL (6.4-8.9); eGFR For Non-African Americans > 60 (> 60)
[2018-01-08] MEDS ORDERED: Piperacillin/Tazobactam 3.375 GM in 0.9 % Sodium Chloride Mini Bag 100 ML IVPB ONE (11:02)
[2018-01-08] MEDS ORDERED: 0.9 % Sodium Chloride 1,000 ML IVC ONE (11:02)
[2018-01-08 11:21] LABS: Platelet Estimate Normal (Normal)
[2018-01-08 13:15] LABS: Adenovirus F 40/41 PCR Not detected (Not detect); Astrovirus PCR Not detected (Not detect); C.difficile Toxin A/B by PCR Not detected (Not detect); Campylobacter by PCR Not detected (Not detect); Cryptosporidium by PCR Not detected (Not detect); Cyclospora cayetanensis PCR Not detected (Not detect); E. coli O157 by PCR Not detected (Not detect); Entamoeba histolytica PCR Not detected (Not detect); Enteroaggregative E.coli(EAEC) Not detected (Not detect); Enteropathogenic E.coli(EPEC) Not detected (Not detect); Enterotoxigenic E.coli (ETEC) Not detected (Not detect); Giardia lamblia PCR Not detected (Not detect); Norovirus GI/GII PCR Not detected (Not detect); Plesiomonas shigelloides PCR Not detected (Not detect); Rotavirus A PCR Not detected (Not detect); Salmonella PCR Not detected (Not detect); Sapovirus PCR Not detected (Not detect); Shig/EnteroinvasiveE coli EIEC Not detected (Not detect); Shigalike tox-prod E coli STEC Not detected (Not detect); Vibrio PCR Not detected (Not detect); Vibrio cholerae PCR Not detected (Not detect); Yersinia enterocolitica PCR Not detected (Not detect)
[2018-01-08 13:35] LABS: INR 1.9; Prothrombin Time 20.9 Seconds (9.4-12.1)
[2018-01-08 13:38] LABS: Activated Partial Thrombo Time 32.1 Seconds (26.0-36.0)
[2018-01-08] MEDS ORDERED: Naloxone 0.4 MG/ML INJ IVP PRN (16:19)
--- NOTE | 2018-01-08 16:37 | Internal Med History&Physical ---
<Karol Buckley - Last Filed: 01/08/18 17:36> Date of Encounter: 01/08/18 Time of Encounter: 16:24 Internal Medicine - H&P: HPI Chief complaint: Abdominal pain Admitted From: Emergency Dept History of present illness: Ms. Dove is a 87 year old female with past medical history of CAD, dementia, A.fib, diabetes, hypertension, hyperlipidemia who presented to [facility] ED from [facility] due to complaints of abdominal pain. The patient is a poor historian and somnolent so most of the history is taken from medical records and her son whom was at bedside. Her son reported that over the past few days she has had very little intake of food and water and she had been complaining about her stomach. Her power of mergers and acquisitions attorney is her daughter. She apparently had not had a bowel movement in 5 days. Upon review of medical records the patient is status post left hemiarthroplasty due to femoral neck fracture on 11/26/2017. She has Percocet in her medication list. Son does not think she has had fever, chills. She was more solmnolent but did state that she had very little abdominal pain when I evaluated her. She is a full code. In the ED abdominal CT demonstrated a moderate amount of stool in the rectosigmoid colon with pericolonic stranding suggestive of stercoral colitis. There is focal narrowing of the mid-sigmoid colon adjacent to a partially calcified structure of uncertain etiology. Partial small bowel obstruction not excluded. Cholelithiasis with mild inta and extrahepatic biliary duct dilation. WBC 27.8, lactic acid 5.8. Afebrile, BP stable. She was given IV zosyn and IVF. A milk or magnesia enema that was very successful and she had a large bowel movement. General surgery was consulted in ED. GI panel ordered. Past Med Surg Social Fam HX - Past Medical History Source: old records reviewed Medical history: atrial fibrillation, coronary artery disease, diabetes, hyperlipidemia, hypertension, RA, thyroid disease Additional medical history: CHF Psychiatric history: no psych history - Past Surgical History Surgical History: hip replacement, hysterectomy, other Additional surgical history: Bladder surgery - Social History Smoking Status: Never smoker Smokeless Tobacco Status: No Alcohol use: none Drug use: none - Family History Father Living Status: Hx Family Cardiac Disorders: Yes Mother Living Status: Hx Family Neuromuscular Disorders: Yes (ARTHRITIS) Internal Medicine - H&P: Meds Furosemide [Lasix] 40 mg PO DAILY PRN 01/09/15 [History] Levothyroxine [Synthroid] 150 mcg PO QAM 01/09/15 [History] Losartan [Cozaar] 100 mg PO QAM 01/09/15 [History] Metformin [Glucophage] 500 mg PO BID 01/09/15 [History] Metoprolol XL (24 HR) Succ [Toprol XL] 50 mg PO QAM 01/09/15 [History] Amlodipine [Norvasc] 2.5 mg PO DAILY 04/30/15 [History] Simvastatin [Zocor] 20 mg PO DAILY 04/30/15 [History] Apixaban [Eliquis] 2.5 mg PO BID 60 Days tablet 05/03/15 [Rx] Docusate [Colace] 100 mg PO BID #60 capsule 11/29/17 [Rx] Ferrous Sulfate 325 mg PO BIDWM #60 tablet 11/29/17 [Rx] LORazepam [Ativan] 0.5 mg PO HS PRN 2 Days #2 tablet 11/29/17 [Rx] OxyCODONE/APAP 5/325 [Percocet 5/325 MG] 1 each PO Q6HR PRN 2 Days #8 tablet 05/18 [Rx] Calcium Carbonate [Calcium] 500 mg PO BID 01/08/18 [History] Lactulose [Enulose] 20 gm PO BID 01/08/18 [History] Midodrine HCl 2.5 mg PO TID 01/08/18 [History] 3 Allergy/AdvReac Type Severity Reaction Status Date / Time Sulfa (Sulfonamide Allergy Hives Verified 01/09/15 18:17 Antibiotics) ROS unobtainable: other (solmnolent and sleeping) All Systems PM: A 10-system review of systems was performed and is negative for pertinent findings except as documented above in the HPI. - Constitutional Vitals: Temp Pulse Resp BP Pulse Ox 97.7 F 82 14 134/74 96 01/08/18 15:23 01/08/18 15:23 01/08/18 15:23 01/08/18 15:23 01/08/18 15:23 General appearance: Present: A&O X 0, pleasant, no acute distress Exam: see below - Head Head exam: Present: atraumatic, normal inspection - Eye Eye exam: Present: normal appearance. Absent: conjunctival injection, scleral icterus - Neck Neck exam general surgery: Present: supple. Absent: lymphadenopathy, tenderness - Respiratory Respiratory exam: Present: CTAB. Absent: rales, rhonchi, wheezes - Cardiovascular Cardiovascular exam: Present: irregular rhythm - GI/Abdominal GI/Abdominal exam: Present: distended, normal bowel sounds, soft. Absent: firm , guarding, tenderness - Extremities Exam Extremities exam: Present: normal inspection. Absent: pedal edema, tenderness - Neurological Exam Neurological exam: Absent: facial droop - Skin Skin exam: Present: dry, intact Internal Med - H&P Results - Labs CBC & Chem 7: 01/08/18 10:20 01/08/18 10:20 - Assessment and plan (1) Colitis Current Visit: Yes Status: Acute Assessment and plan: Colitis demonstrated by CT abd/pelvis and likely secondary to fecal impaction. Received IV zosyn in ED. -1 SIRS criteria of WBC 27.8, lactic acid 5.8 -CT Abd/ pelvis demonstrated a moderate amount of stool in the rectosigmoid colon with pericolonic stranding suggestive of stercoral colitis. There is focal narrowing of the mid-sigmoid colon adjacent to a partially calcified structure of uncertain etiology. Partial small bowel obstruction not excluded. Cholelithiasis with mild inta and extrahepatic biliary duct dilation. -abdominal exam was positive for bowel sounds and no tenderness to palpation. -GI panel negative plan: -continue IV cipro and flagyl -NPO -general surgery following due to possible SBO on CT -continue IVF LR 125 -monitor WBC (2) Constipation by delayed colonic transit Current Visit: Yes Status: Acute Assessment and plan: Patient came from intermediate after complaining of abdominal pain and not having a bowel movement in 5 days. According to son she has eaten or drank very little over the past few days. She had a left hemiarthroplasty 11/26/2017 for which she was taking percocets. Constipation is likely secondary to a culmination of factors including opiates, decreased activity, decreased oral intake. A milk of magnesia enema was done in ED and was very successful at expelling a large amount of stool. -will continue IVF -continue home colace and lactulose -avoid opiates -continue supportive therapy (3) Hypertension Current Visit: No Status: Chronic Assessment and plan: History of known hypertension taking metoprolol, amlodipine, losartan, lasix. -continue home medications Qualifiers: Hypertension type: unspecified Qualified Code(s): I10 - Essential (primary ) hypertension (4) Non-insulin dependent type 2 diabetes mellitus Current Visit: No Status: Chronic Assessment and plan: History of diabetes taking metformin. -continue low dose sliding scale insulin -accu checks (5) Atrial fibrillation Current Visit: No Status: Acute Assessment and plan: History of known A.fib on anticoagulation with eliquis and rate controlled with metoprolol. -continue home medications Qualifiers: Atrial fibrillation type: unspecified Qualified Code(s): I48.91 - Unspecified atrial fibrillation (6) HLD (hyperlipidemia) Current Visit: No Status: Chronic Assessment and plan: History of known HLD taking simvastatin. -continue home medications Qualifiers: Hyperlipidemia type: unspecified Qualified Code(s): E78.5 - Hyperlipidemia , unspecified (7) DVT prophylaxis Current Visit: No Status: Acute Assessment and plan: on eliquis (8) Lactate blood increase Current Visit: Yes Status: Acute Assessment and plan: elevated lactic acid level 5.8 in setting of colitis with only 1 meeting SIRS criteria elevated WBC. Likely secondary to constipation and colitis. Unlikely mesenteric ischemia. afebrile -will repeat lactic acid -urinalysis pending - Time Spent With Patient Total time spent is greater than 50% in coordination of care (as documented) at patient's floor/unit and/or counseling patient: <Mariangel Denney - Last Filed: 01/08/18 17:53> Date of Encounter: 01/08/18 Time of Encounter: 17:20 Internal Medicine - H&P: HPI History of present illness: Ms. Dove is a 87 year old female All Systems PM: A 10-system review of systems was performed and is negative for pertinent findings except as documented above in the HPI. - Constitutional Vitals: Temp Pulse Resp BP Pulse Ox 97.7 F 82 14 134/74 96 01/08/18 15:23 01/08/18 15:23 01/08/18 15:23 01/08/18 15:23 01/08/18 15:23 General appearance: Present: cooperative, A&O X 2, answers questions appropriately - Neck Neck exam general surgery: Present: supple, trachea midline. Absent: lymphadenopathy - Respiratory Respiratory exam: Present: CTAB. Absent: accessory muscle use, rales, rhonchi, wheezes - GI/Abdominal GI/Abdominal exam: Present: distended, normal bowel sounds, soft. Absent: firm , guarding, tenderness - Extremities Exam Extremities exam: Present: warm, radial pulses palpable and symmetrical. Absent : calf tenderness, cyanotic, pedal edema - Neurological Exam Neurological exam: Present: alert, no focal deficits. Absent: facial droop, speech deficit - Skin Skin exam: Present: dry, intact Internal Med - H&P Results - Labs CBC & Chem 7: 01/08/18 10:20 01/08/18 10:20 - Impressions Impressions Abdomen/Pelvis CT 01/08/18 09:29 IMPRESSION: 1. Moderate amount of stool in the rectosigmoid colon with pericolonic stranding suggestive of stercoral colitis. Infectious or inflammatory colitis could also be a possibility. There is focal narrowing of the midsigmoid colon adjacent to a partially calcified structure of uncertain etiology. No comparison exams are available. A partial obstruction is not excluded, however the more upstream colon is not significantly dilated. No pneumatosis or free air. 2. Bilateral inguinal hernias containing nonobstructed loop of bowels. 3. Cholelithiasis with mild intra and extrahepatic biliary duct dilation. Recommend correlation with LFTs. D/ / 01/08/2018 11:16:46 Tresa Gil MD / [facility] Interpreting Provider: Tresa Gil MD - Assessment and plan (1) Colitis Current Visit: Yes Status: Acute (2) Constipation by delayed colonic transit Current Visit: Yes Status: Acute (3) Hypertension Current Visit: No Status: Chronic Qualifiers: Hypertension type: unspecified Qualified Code(s): I10 - Essential (primary ) hypertension (4) HLD (hyperlipidemia) Current Visit: No Status: Chronic Qualifiers: Hyperlipidemia type: unspecified Qualified Code(s): E78.5 - Hyperlipidemia , unspecified (5) Non-insulin dependent type 2 diabetes mellitus Current Visit: No Status: Chronic (6) DVT prophylaxis Current Visit: No Status: Acute (7) Atrial fibrillation Current Visit: No Status: Acute Qualifiers: Atrial fibrillation type: unspecified Qualified Code(s): I48.91 - Unspecified atrial fibrillation (8) Lactate blood increase Current Visit: Yes Status: Acute - Time Spent With Patient Total time spent is greater than 50% in coordination of care (as documented) at patient's floor/unit and/or counseling patient: - Attending Attestation I saw evaluated and examined this patient and my medical decision-making was reviewed with the Resident Physician, Karol Buckley. I agree with the documented findings, disposition and treatment plan as described except to any changes set forth below. We independently had [id number] contact with the patient. 87-year-old female patient with history of dementia who resides at intermediate presented to the ER with complaints of nausea or vomiting, abdominal pain. Symptoms have been going on for 4-5 days. Patient was in the hospital in October when she had a left femoral neck fracture and underwent left hip hemiarthroplasty. She has been on Percocet intermittently since then. She also takes laxatives at the intermediate. In the ER, she was evaluated the CT scan of the abdomen and pelvis which showed stercolitis, constipation and possible partial small bowel obstruction. She received milk of magnesia lysis and edema and had a bowel movement. Since then her symptoms have improved. She is not having any nausea at this time. Her abdominal pain has also improved. Lactic acid 5.8. WBC 27.8. Abdominal pain: Due to constipation/colitis. Continue antibiotics for now. Treat abdominal pain symptomatically. Keep nothing by mouth. Surgery consult placed. We will follow recommendations. Moderate risk for complications. Dementia: Fall precautions. Monitor for signs of delirium. Atrial fibrillation: Rate controlled. On and correlation with Eliqugabrielle. Will continue. Essential hypertension: Blood pressure was elevated initially but has since improved. We will continue home medications. Lactic acidosis: Could be related to colitis. Will hydrate patient and recheck levels. Coronary artery disease: Continue home medications including Cozaar Toprol and Zocor. Diabetes mellitus type II: Place patient on sliding scale insulin.
[2018-01-08] MEDS: Ringers Solution, Lactated 1,000 ML IVC SCH ×2 (16:46→23:20)
[2018-01-08] MEDS ORDERED: *HR* Dextrose 50 % in Water (Syg) 50 ML SYRINGE IVP PRN (17:23)
[2018-01-08] MEDS ORDERED: Dextrose Gel 15 GM/37.5 ML TUBE PO PRN (17:23)
[2018-01-08] MEDS ORDERED: D5% in Water 1,000 ML IVC PRN (17:23)
[2018-01-08] MEDS: Insulin LISPRO 300 UNITS/3 ML VIAL SQ SCH (18:30)
[2018-01-08] MEDS: Apixaban 5 MG TABLET PO SCH ×2 (20:45→20:50)
[2018-01-08] MEDS: Lactulose Oral Soln 20 GM/30 ML UDC PO SCH ×2 (20:45→20:51)
[2018-01-08] MEDS ORDERED: Insulin LISPRO 300 UNITS/3 ML VIAL SQ SCH (21:00)
--- NOTE | 2018-01-08 21:35 | General Surgery Consult Note ---
Date of Encounter: 01/08/18 Time of Encounter: 21:33 Assessment and Plan (1) Colitis Current Visit: Yes Status: Acute I personally reviewed the CT scan images and report. I do agree with IV antibiotics and IV fluid resuscitation given her lactic acidosis and CT scan finding concerning for colitis. Per the report that a disimpaction was performed in the emergency room and the patient was also given enemas which I think is appropriate as well. Will follow with you. History of Present Illness Consult date: 01/08/18 Requesting physician: Dillon Blunt History of present illness: The patient is an 87-year-old female with a past medical history significant for dementia who was transported from [facility] who has had a five-day history with bowel movements. Normally she has a bowel movement once a week to once every other day however the patient is a poor historian. She was feeling different from her baseline and because of that and the lack of a bowel movement she was transported from the facility to the emergency room where laboratory studies were performed demonstrating a leukocytosis and lactic acidosis. A CT scan of the abdomen and pelvis showed a dilated colon with stool throughout the entire colon concerning for impaction. There were also signs of fat stranding around the cecum concerning for colitis. Further family member who is present the patient has of looks more comfortable than she was previously. Past Med Surg Social Fam HX - Past Medical History Medical history: atrial fibrillation, coronary artery disease, diabetes, hyperlipidemia, hypertension, RA, thyroid disease Additional medical history: CHF Psychiatric history: no psych history - Past Surgical History Surgical History: hip replacement, hysterectomy, other Additional surgical history: Bladder surgery - Social History Smoking Status: Never smoker Smokeless Tobacco Status: No Alcohol use: none Drug use: none - Family History Father Living Status: Hx Family Cardiac Disorders: Yes Mother Living Status: Hx Family Neuromuscular Disorders: Yes (ARTHRITIS) Medications and Allergies Furosemide [Lasix] 40 mg PO DAILY PRN 01/09/15 [History] Levothyroxine [Synthroid] 150 mcg PO QAM 01/09/15 [History] Losartan [Cozaar] 100 mg PO QAM 01/09/15 [History] Metformin [Glucophage] 500 mg PO BID 01/09/15 [History] Metoprolol XL (24 HR) Succ [Toprol XL] 50 mg PO QAM 01/09/15 [History] Amlodipine [Norvasc] 2.5 mg PO DAILY 04/30/15 [History] Simvastatin [Zocor] 20 mg PO DAILY 04/30/15 [History] Apixaban [Eliquis] 2.5 mg PO BID 60 Days tablet 05/03/15 [Rx] Docusate [Colace] 100 mg PO BID #60 capsule 11/29/17 [Rx] Ferrous Sulfate 325 mg PO BIDWM #60 tablet 11/29/17 [Rx] LORazepam [Ativan] 0.5 mg PO HS PRN 2 Days #2 tablet 11/29/17 [Rx] OxyCODONE/APAP 5/325 [Percocet 5/325 MG] 1 each PO Q6HR PRN 2 Days #8 tablet 05/18 [Rx] Calcium Carbonate [Calcium] 500 mg PO BID 01/08/18 [History] Lactulose [Enulose] 20 gm PO BID 01/08/18 [History] Midodrine HCl 2.5 mg PO TID 01/08/18 [History] 3 Allergy/AdvReac Type Severity Reaction Status Date / Time Sulfa (Sulfonamide Allergy Hives Verified 01/09/15 18:17 Antibiotics) Review of Systems All systems PM: reviewed and no additional remarkable complaints except as stated All systems PM: The remainder of the systems were reviewed and are negative General Surgery Exam Initial Vital Signs Temp Pulse Resp BP Pulse Ox 98.3 F 65 16 164/77 97 01/08/18 09:17 01/08/18 09:17 01/08/18 09:17 01/08/18 09:17 01/08/18 09:17 - Eyes PERRL - Respiratory normal expansion, normal respiratory effort (Decreased breath sounds at the bases) - Cardiovascular Cardiovascular exam: Present: RRR, no murmurs/rubs/gallops - Abdomen Abdomen general surgery: Present: bowel sounds present, soft, tender (mild tenderness to palpation in the pelvis) - Neurologic Present: CN 2-12 grossly intact, memory loss - Musculoskeletal Present: other (No clubbing or cyanosis) Exam Initial Vital Signs Temp Pulse Resp BP Pulse Ox 98.3 F 65 16 164/77 97 01/08/18 09:17 01/08/18 09:17 01/08/18 09:17 01/08/18 09:17 09/10/18 09:17 Results - Labs 01/08/18 10:20 01/08/18 10:20 Abnormal lab results WBC 27.8 K/mcL (4.3-11.1) H 01/08/18 10:20 RDW 15.1 % (11.5-14.5) H 01/08/18 10:20 Neutrophils # 26.2 K/mcL (1.6-8.9) H 01/08/18 10:20 Lymphocytes # 0.4 K/mcL (0.6-4.6) L 01/08/18 10:20 PT 20.9 Seconds (9.4-12.1) H 01/08/18 10:20 Sodium 134 mEq/L (136-145) L 01/08/18 10:20 Chloride 90 mEq/L (98-107) L 01/08/18 10:20 Carbon Dioxide 30 mEq/L (23-29) H 01/08/18 10:20 Glucose 264 mg/dL (70-105) H 01/08/18 10:20 Lactic Acid 3.1 mmol/L (0.5-2.2) H 01/08/18 17:00 Total Bilirubin 1.1 mg/dL (0.3-1.0) H 01/08/18 10:20 Direct Bilirubin 0.4 mg/dL (0.0-0.2) H 01/08/18 10:20 Alkaline Phosphatase 123 Units/L (34-104) H 01/08/18 10:20 Lipase < 3 Units/L (11-82) L 01/08/18 10:20 All other labs normal. - Imaging CT scan - abdomen: report reviewed, image reviewed (I personally reviewed the CT scan images and report which show dilated colon with the largest stool within the rectum and throughout the colon. Questionable fat stranding with no free air or free fluid) Consult Discharge Plan - Plan Referrals: Marquita Nj, APRON CLEANER [Primary Care Provider] -
[2018-01-09] MEDS: Insulin LISPRO 300 UNITS/3 ML VIAL SQ SCH ×4 (01:31→17:40)
[2018-01-09] MEDS: MetroNIDAZOLE 500 MG/100 ML 500 MG/100 ML BAG IVPB SCH ×3 (01:31→15:38)
[2018-01-09 05:09] LABS: Basophils % 0.2 %; Eosinophils # 0.2 K/mcL (0.0-0.6); Eosinophils % 1.2 %; Hematocrit 36.3 % (35.3-44.9); Hemoglobin 12.2 g/dL (11.5-15.4); Immature Granulocytes % 0.7 % (0-4); Lymphocytes # 1.1 K/mcL (0.6-4.6); Mean Corpuscular HGB Conc 33.6 g/dL (31.6-35.5); Mean Corpuscular Hemoglobin 32.3 pg (28.0-33.3); Neutrophils # 14.9 K/mcL (1.6-8.9); Platelet Count 296 K/mcL (140-400); Red Blood Count 3.78 M/mcL (3.82-4.97); Red Cell Distribution Width 15.2 % (11.5-14.5); Segmented Neutrophils % 85.9 %
[2018-01-09 05:22] LABS: BUN/Creatinine Ratio 29 (6-26); Blood Urea Nitrogen 22 mg/dL (8-23); Calcium 8.6 mg/dL (8.6-10.3); Carbon Dioxide 33 mEq/L (23-29); Chloride 95 mEq/L (98-107); Glucose 124 mg/dL (70-105); Osmolality,Calculated 285 (280-300); Potassium 3.1 mEq/L (3.5-5.1); Sodium 135 mEq/L (136-145); eGFR For Non-African Americans > 60 (> 60)
[2018-01-09] MEDS: Ringers Solution, Lactated 1,000 ML IVC SCH ×2 (05:45→18:06)
[2018-01-09] MEDS ORDERED: Insulin LISPRO 300 UNITS/3 ML VIAL SQ SCH (07:30)
[2018-01-09] MEDS ORDERED: Dextrose Gel 15 GM/37.5 ML TUBE PO PRN (07:44)
--- NOTE | 2018-01-09 08:31 | Internal Med Progress Note ---
<Sammy Fonseca - Last Filed: 01/09/18 17:52> Hospitalist Progress Note - Encounter Date of Encounter: 01/09/18 Time of Encounter: 10:15 - Subjective Interval History: Mrs Dove is a 87 yo female with a past medical history of CAD, dementia, A. fib , diabetes, hypertension, hyperlipidemia who was admitted to the [facility] for nominal pain was found to have stool in her bowel. She is s/p disimpaction . Her abdominal CT was also positive for stercoral colitiis secondary to fecal impaction. Patient is currently on day 2 of cipro and flagyl . She endorses no acute distress at the moment. - Exam Vitals: Temp Pulse Resp BP Pulse Ox 98.1 F 98 18 157/81 96 01/09/18 07:16 01/09/18 07:16 01/09/18 07:16 01/09/18 07:16 01/09/18 07:16 Exam: General: Patient is alert, no acute distress, oriented x 3 Respiratory: Good respiratory effort. Normal breath sounds. No wheezing or crackles. Cardiovascular: Irregularly irregular No pedal edema Abdomen: Abdomen is soft, nontender. Bowel sounds are present, no guarding or rebound tenderness Musculoskeletal: Spontaneously moving all extremities Skin: warm, dry, intact. Neuro: Alert oriented x 3 normal cranial nerves, no focal deficits - Assessment and Plan (1) Colitis Current Visit: Yes Status: Acute Assessment and Plan: - Secondary to obstipation for the last few days. Patient has been on Percocet for pain control after hemiarthroplasty. She also endorses less fluid intake the last few days. -CT of the abdominal/ pelvis showed stool in the rectosigmoid colon with pericolonic stranding suggestive of stercoral colitis. She endorses no acute distress. -Patient is on day 3 of Cipro and Flagyl. (2) Hypertension Current Visit: No Status: Chronic Assessment and Plan: -Patient has a history of hypertension. -Home meds are metoprolol, amlodipine, losartan. Continue home meds. (3) Diabetes mellitus Current Visit: Yes Status: Acute Assessment and Plan: -Patient has a history of iul-hzvecxs-bxkyxxgec diabetes mellitus. -Currently on low-dose sliding scale insulin. -Continue Accu-Cheks. (4) Atrial fibrillation Current Visit: No Status: Acute Assessment and Plan: -Patient has a history of atrial fibrillation. CHADVaSc score : 5 -Continue home meds Eliquis, metoprolol fluid control. (5) HLD (hyperlipidemia) Current Visit: No Status: Chronic Assessment and Plan: - Patient with history of hyperlipidemia. -Continue home medication simvastatin. DVT Prophylaxis: Eliquis. - Time Spent with Patient Total time spent is greater than 50% in coordination of care (as documented) at patient's floor/unit and/or counseling patient: Internal Medicine: Result - Labs CBC & Chem 7: 01/09/18 04:30 01/09/18 04:30 Labs: Short CBC 01/09/18 Range/Units 04:30 WBC 17.4 H (4.3-11.1) K/mcL Hgb 12.2 D (11.5-15.4) g/dL Hct 36.3 (35.3-44.9) % Plt Count 296 (140-400) K/mcL Neutrophils # 14.9 H (1.6-8.9) K/mcL BMP 01/09/18 04:30 Sodium 135 L Potassium 3.1 L Chloride 95 L Carbon Dioxide 33 H BUN 22 Creatinine 0.77 Glucose 124 H Calcium 8.6 - ABG Interpretation ABG results: PT/INR, D-dimer PT 20.9 Seconds (9.4-12.1) H 01/08/18 10:20 Consult Discharge Plan - Plan Referrals: Marquita Nj, TELECOMMUNICATIONS NETWORK ENGINEER [Primary Care Provider] - <Daniel Berumen - Last Filed: 01/09/18 18:12> Hospitalist Progress Note - Encounter Date of Encounter: 01/09/18 - Exam Vitals: Temp Pulse Resp BP Pulse Ox 98.4 F 93 18 143/74 95 01/09/18 16:04 01/09/18 16:04 01/09/18 16:04 01/09/18 16:04 01/09/18 16:04 - Assessment and Plan (1) Hypertension Current Visit: No Status: Chronic (2) HLD (hyperlipidemia) Current Visit: No Status: Chronic (3) Non-insulin dependent type 2 diabetes mellitus Current Visit: No Status: Chronic (4) DVT prophylaxis Current Visit: No Status: Acute (5) Atrial fibrillation Current Visit: No Status: Acute (6) Constipation by delayed colonic transit Current Visit: Yes Status: Acute (7) Colitis Current Visit: Yes Status: Acute (8) Lactate blood increase Current Visit: Yes Status: Acute - Time Spent with Patient Total time spent is greater than 50% in coordination of care (as documented) at patient's floor/unit and/or counseling patient: Internal Medicine: Result - Labs CBC & Chem 7: 01/09/18 04:30 01/09/18 04:30 Labs: Short CBC 01/09/18 Range/Units 04:30 WBC 17.4 H (4.3-11.1) K/mcL Hgb 12.2 D (11.5-15.4) g/dL Hct 36.3 (35.3-44.9) % Plt Count 296 (140-400) K/mcL Neutrophils # 14.9 H (1.6-8.9) K/mcL BMP 01/09/18 04:30 Sodium 135 L Potassium 3.1 L Chloride 95 L Carbon Dioxide 33 H BUN 22 Creatinine 0.77 Glucose 124 H Calcium 8.6 - ABG Interpretation ABG results: PT/INR, D-dimer PT 20.9 Seconds (9.4-12.1) H 01/08/18 10:20 - Impressions Impressions Abdomen X-Ray 01/09/18 09:32 IMPRESSION: Nonspecific nonobstructive bowel gas pattern. Moderate colonic stool burden. Enlarged cardiomediastinal silhouette. Findings suggestive of COPD. D/ / 01/09/2018 11:09:08 Juan Carlos Gil MD / jerry Interpreting Provider: Juan Carlos Gil MD - Attending Attestation I examined this patient and my medical decision-making was reviewed with the Resident Physician on 01/09/18. I agree with the documented findings, disposition and treatment plan as described except to the extent set forth below. Ms Dove has been admitted for acute obstipation resulting in functional bowel obstruction. She remains moderate to high risk due to potential for worsening clinical status. Ms Dove feels somewhat better. No fever or chills. Has had large BMs. No abd pain. No CP or SOB. Exam alert Comfortable in bed Mucus membranes dry Heart distant Lungs clear Abd soft - nontender No edema I/P 1. Obstipation 2. Functional bowel obstruction Trial clears Further diagnoses and plan as above. <Sammy Fonseca - Last Filed: 01/09/18 17:52> (2) Hypertension Qualifiers: Hypertension type: unspecified Qualified Code(s): I10 - Essential (primary) hypertension (4) Atrial fibrillation Qualifiers: Atrial fibrillation type: unspecified Qualified Code(s): I48.91 - Unspecified atrial fibrillation (5) HLD (hyperlipidemia) Qualifiers: Hyperlipidemia type: unspecified Qualified Code(s): E78.5 - Hyperlipidemia, unspecified <Daniel Berumen - Last Filed: 01/09/18 18:12> (1) Hypertension Qualifiers: Hypertension type: essential hypertension Qualified Code(s): I10 - Essential (primary) hypertension (2) HLD (hyperlipidemia) Qualifiers: Hyperlipidemia type: mixed hyperlipidemia Qualified Code(s): E78.2 - Mixed hyperlipidemia (5) Atrial fibrillation Qualifiers: Atrial fibrillation type: chronic Qualified Code(s): I48.2 - Chronic atrial fibrillation
[2018-01-09] MEDS: Lactulose Oral Soln 20 GM/30 ML UDC PO SCH ×2 (09:21→20:47)
[2018-01-09] MEDS: Apixaban 5 MG TABLET PO SCH ×2 (09:22→20:47)
[2018-01-09] MEDS: Metoprolol XL (24 HR) Succ 50 MG TAB.ER.24H PO SCH (09:22)
[2018-01-09] MEDS: amLODIPine 5 MG TABLET PO SCH (09:22)
--- NOTE | 2018-01-09 09:33 | General Surgery Progress Note ---
Addendum entered and electronically signed by Deysi Willis CNP 01/09/18 10: 39: AAS completed, nonspecific bowel gas pattern. Moderate colonic stool burden. Obstipation management per primary team however I did add milk of molasses enemas Q6 hours for 2 days. Lactic acid has normalized. No acute surgical intervention indicated. Anticipate sign off per surgical attending attestation. Original Note: <Deysi Willis - Last Filed: 01/09/18 09:34> Date of Encounter: 01/09/18 Time of Encounter: 09:33 - Assessment and Plan (1) Colitis Current Visit: Yes Status: Acute CT concerning for colitis WBC is downtrending 27.8>>17.4 and w/o bandemia on cipro/flagyl noted lactulose administration Pt states she is feeling much better but has not passed flatus. States abdominal pain is completely resolved. VSS Plan: Continue IV ATBX per primary team continue supportive care and discomfort management continue G.I. and DVT prophylaxis stat acute abdominal series, further recommendations pending (2) Constipation by delayed colonic transit Current Visit: Yes Status: Acute See assessment and plan above (3) Lactate blood increase Current Visit: Yes Status: Acute Improvin.8>>3.1 will repeat Subjective Patient reports: no new complaints, feels better, pain is less, voiding w/o difficulty, no flatus, bowel movement, afebrile Objective Vital Signs - Last 8 Hours Temp Pulse Resp BP Pulse Ox 01/09/18 07:16 98.1 F 98 18 157/81 96 01/09/18 04:48 97.6 F 88 17 152/87 95 Intake and Output 01/08/18 01/09/18 01/09/18 23:59 07:59 15:59 Intake Total 200 / 200 1000 / 1000 100 / 100 Output Total 200 / 200 Balance 0 / 0 1000 / 1000 100 / 100 Intake: IV Fluids 200 / 200 1000 / 1000 100 / 100 Lactated Ringers 1,000 ML @ 125 1000 / 1000 mls/hr IVC .Q8H [facility] Rx#: [id number] Cipro Premix 400 MG/200 ML 400 200 / 200 mg In 200 ml @ 200 mls/hr IVPB Q12HR [facility] Rx#:[id number] Flagyl Premix 500 MG/100 ML 500 100 / 100 mg In 100 ml @ 100 mls/hr IVPB Q8HR [facility] Rx#:[id number] Oral 0 / 0 Output: Urine 200 / 200 Other: Meal NPO FOR DINNER Percent of Meal Consumed 0% # Bowel Movements 0 Weight 49.5 kg Blood Glucose* 207 137 Patient Weight 01/09/18 23:59 Weight 49.5 kg - General physical appearance well nourished, no distress, other (sitting upright in bed. Family at bedside) - Eyes normal ocular movement - Neck Neck exam: trachea midline - Respiratory normal expansion, normal respiratory effort, clear to auscultation - Cardiovascular Cardiovascular exam: Present: RRR - Abdomen Abdomen: Present: bowel sounds present, soft, non tender Hernia: none - Integumentary no rash - Musculoskeletal normal posture - Psychiatric oriented to time, oriented to person, oriented to place - Labs 01/09/18 04:30 01/09/18 04:30 Diabetes panel 01/09/18 Range/Units 04:30 Sodium 135 L (136-145) mEq/L Potassium 3.1 L (3.5-5.1) mEq/L Chloride 95 L (98-107) mEq/L Carbon Dioxide 33 H (23-29) mEq/L BUN 22 (8-23) mg/dL Creatinine 0.77 (0.60-1.20) mg/dL Glucose 124 H (70-105) mg/dL Calcium 8.6 (8.6-10.3) mg/dL Calcium panel 01/09/18 Range/Units 04:30 Calcium 8.6 (8.6-10.3) mg/dL Pituitary panel 01/09/18 Range/Units 04:30 Sodium 135 L (136-145) mEq/L Potassium 3.1 L (3.5-5.1) mEq/L Chloride 95 L (98-107) mEq/L Carbon Dioxide 33 H (23-29) mEq/L BUN 22 (8-23) mg/dL Creatinine 0.77 (0.60-1.20) mg/dL Glucose 124 H (70-105) mg/dL Calcium 8.6 (8.6-10.3) mg/dL Adrenal panel 01/09/18 Range/Units 04:30 Sodium 135 L (136-145) mEq/L Potassium 3.1 L (3.5-5.1) mEq/L Chloride 95 L (98-107) mEq/L Carbon Dioxide 33 H (23-29) mEq/L BUN 22 (8-23) mg/dL Creatinine 0.77 (0.60-1.20) mg/dL Glucose 124 H (70-105) mg/dL Calcium 8.6 (8.6-10.3) mg/dL Consult Discharge Plan - Plan Referrals: Marquita Nj, MAT ROLLER [Primary Care Provider] - <Lan Balbuena - Last Filed: 01/10/18 06:53> Date of Encounter: 01/09/18 - Assessment and Plan (1) Colitis Current Visit: Yes Status: Acute Objective Vital Signs - Last 8 Hours Temp Pulse Resp BP Pulse Ox 01/10/18 04:10 98.4 F 78 14 146/83 94 01/10/18 00:24 98.6 F 62 14 153/80 94 Intake and Output 01/09/18 01/09/18 01/10/18 15:59 23:59 07:59 Intake Total 200 / 200 1300 / 1300 1030 / 1030 Output Total 200 / 200 200 / 200 Balance 200 / 200 1100 / 1100 830 / 830 Intake: IV Fluids 200 / 200 1300 / 1300 1030 / 1030 Lactated Ringers 1,000 ML @ 125 1000 / 1000 930 / 930 mls/hr IVC .Q8H [facility] Rx#: [id number] Cipro Premix 400 MG/200 ML 400 200 / 200 mg In 200 ml @ 200 mls/hr IVPB Q12HR [facility] Rx#:[id number] Flagyl Premix 500 MG/100 ML 500 200 / 200 100 / 100 100 / 100 mg In 100 ml @ 100 mls/hr IVPB Q8HR [facility] Rx#:[id number] Output: Urine 200 / 200 200 / 200 Other: Stool Size Moderate Small Smear Stool Consistency formed formed Stool Characteristics Mucoid Stool Color Brown Brown Brown # Urine Diapers 1 # Bowel Movements 1 1 # Bowel Movement Diapers 1 Weight 51.1 kg Blood Glucose* 368 110 130 Patient Weight 01/10/18 23:59 Weight 51.1 kg - Labs 01/10/18 06:21 01/09/18 04:30 - Attending Attestation I have personally performed a face to face evaluation on this patient. I have reviewed and agree with the care plan. History and Exam by me shows: Reviewed the above assessment and evaluation and agree with the above plan.
--- NOTE | 2018-01-09 11:04 | Internal Med Progress Note ---
Hospitalist Progress Note - Encounter Date of Encounter: 01/19/18 - Subjective Interval History: CANCELLED NOTE - Exam Vitals: Temp Pulse Resp BP Pulse Ox 98.1 F 98 18 157/81 96 01/09/18 07:16 01/09/18 07:16 01/09/18 07:16 01/09/18 07:16 01/09/18 07:16 Exam: CANCELLED NOTE - Summary of Assessment and Plan Summary of Assessment and Plan: CANCELLED NOTE - Time Spent with Patient Total time spent is greater than 50% in coordination of care (as documented) at patient's floor/unit and/or counseling patient: Internal Medicine: Result - Labs CBC & Chem 7: 01/10/18 06:21 01/10/18 06:21 Labs: Short CBC 01/09/18 Range/Units 04:30 WBC 17.4 H (4.3-11.1) K/mcL Hgb 12.2 D (11.5-15.4) g/dL Hct 36.3 (35.3-44.9) % Plt Count 296 (140-400) K/mcL Neutrophils # 14.9 H (1.6-8.9) K/mcL BMP 01/09/18 04:30 Sodium 135 L Potassium 3.1 L Chloride 95 L Carbon Dioxide 33 H BUN 22 Creatinine 0.77 Glucose 124 H Calcium 8.6 - ABG Interpretation ABG results: PT/INR, D-dimer PT 20.9 Seconds (9.4-12.1) H 01/08/18 10:20 - Impressions Impressions Abdomen X-Ray 01/09/18 09:32 IMPRESSION: Nonspecific nonobstructive bowel gas pattern. Moderate colonic stool burden. Enlarged cardiomediastinal silhouette. Findings suggestive of COPD. D/ / Juan Carlos Gil MD / Juan Carlos Gil MD Interpreting Provider: Juan Carlos Gil MD Consult Discharge Plan - Plan Additional Instructions: - Continue taking lactulose and Colace. - Stay hydrated - Stop taking Percocets and take Tylenol for pain control - Incorporate more fiber in the diet. Referrals: Marquita Nj, DUE DILIGENCE COORDINATOR [Primary Care Provider] - Prescriptions: Ciprofloxacin [Cipro] 500 mg PO DAILY #4 mls metroNIDAZOLE [Flagyl] 500 mg PO ONCE #4 tablet
[2018-01-09] MEDS: Milk and Molasses Enema 200 ML RC SCH ×3 (11:59→20:47)
[2018-01-10] MEDS: Insulin LISPRO 300 UNITS/3 ML VIAL SQ SCH ×3 (00:33→12:15)
[2018-01-10] MEDS: MetroNIDAZOLE 500 MG/100 ML 500 MG/100 ML BAG IVPB SCH ×3 (00:37→15:25)
[2018-01-10] MEDS: Milk and Molasses Enema 200 ML RC SCH ×3 (04:22→15:19)
[2018-01-10] MEDS: Ringers Solution, Lactated 1,000 ML IVC SCH ×3 (04:26→14:34)
[2018-01-10 06:34] LABS: Basophils # 0.1 K/mcL (0.0-0.2); Basophils % 0.5 %; Eosinophils # 0.3 K/mcL (0.0-0.6); Eosinophils % 1.9 %; Hematocrit 37.6 % (35.3-44.9); Hemoglobin 12.3 g/dL (11.5-15.4); Immature Granulocytes % 0.9 % (0-4); Lymphocytes # 1.2 K/mcL (0.6-4.6); Lymphocytes % 7.1 %; Mean Corpuscular HGB Conc 32.7 g/dL (31.6-35.5); Mean Corpuscular Hemoglobin 31.6 pg (28.0-33.3); Mean Corpuscular Volume 96.7 fL (83.0-100.0); Mean Platelet Volume 9.8 fL (9.4-12.4); Monocytes # 1.1 K/mcL (0.0-1.3); Monocytes % 6.2 %; Neutrophils # 14.1 K/mcL (1.6-8.9); Platelet Count 279 K/mcL (140-400); Red Blood Count 3.89 M/mcL (3.82-4.97); Red Cell Distribution Width 15.3 % (11.5-14.5); Segmented Neutrophils % 83.4 %
[2018-01-10 06:56] LABS: BUN/Creatinine Ratio 22 (6-26); Blood Urea Nitrogen 13 mg/dL (8-23); Calcium 8.3 mg/dL (8.6-10.3); Carbon Dioxide 27 mEq/L (23-29); Chloride 99 mEq/L (98-107); Glucose 138 mg/dL (70-105); Osmolality,Calculated 278 (280-300); Potassium 3.6 mEq/L (3.5-5.1); Sodium 133 mEq/L (136-145); eGFR For Non-African Americans > 60 (> 60)
[2018-01-10] MEDS: amLODIPine 5 MG TABLET PO SCH (07:31)
[2018-01-10] MEDS: Metoprolol XL (24 HR) Succ 50 MG TAB.ER.24H PO SCH (07:31)
[2018-01-10] MEDS: Apixaban 5 MG TABLET PO SCH (07:31)
[2018-01-10] MEDS: Lactulose Oral Soln 20 GM/30 ML UDC PO SCH (07:32)
--- NOTE | 2018-01-10 14:36 | Discharge Summary ---
<Sammy Fonseca - Last Filed: 01/10/18 15:55> - NOTES TO OUTPATIENT PROVIDER Notes to Outpatient Provider: -f/u with PCP Date of Encounter: 01/10/18 Time of Encounter: 10:00 - Discharge Diagnosis (1) Colitis Status: Acute (2) Hypertension Status: Chronic Qualifiers: Hypertension type: essential hypertension Qualified Code(s): I10 - Essential (primary) hypertension (3) Diabetes mellitus Status: Acute (4) Atrial fibrillation Status: Acute Qualifiers: Atrial fibrillation type: chronic Qualified Code(s): I48.2 - Chronic atrial fibrillation (5) HLD (hyperlipidemia) Status: Chronic Qualifiers: Hyperlipidemia type: mixed hyperlipidemia Qualified Code(s): E78.2 - Mixed hyperlipidemia Hospital course: Ms. Dove is a 87 year old female with a past medical history of dementia, CAD, A. fib, hypertension, hyperlipidemia who was admitted to the hospital for generalized abdominal pain. Patient CT of the abdominal/pelvis was found to have significant amount of stool along with pericolonic stranding with concerns for stercoral colitis. She underwent disimpaction in the ER and was admitted to the floor. She underwent a 3 day course of ciprofloxacin 400 mg, metronidazole 5 mg along with lactulose, milk of molasses during the course of her hospital stay. Patient had 2 more episodes of the bowel movements during the course of hospital stay. Her abdominal pain progressively got better. Patient is hemodynamically stable and is deemed fit for discharge to nursing facility. Patient needs to complete 4 more days of her antibiotic regimen. He needs to continue taking her lactulose, Colace for bowel movements, stay hydrated. Since it has been more than 6 weeks since her sid-arthroplasty, patient can stop her Percoet, and take Tylenol for pain control. - Time Spent with Patient Total time spent providing and/or coordinating discharge services: - Discharge Medications Prescriptions: Ciprofloxacin [Cipro] 500 mg PO DAILY #4 mls metroNIDAZOLE [Flagyl] 500 mg PO ONCE #4 tablet Home Medications: Furosemide [Lasix] 40 mg PO DAILY PRN 01/09/15 [History] Levothyroxine [Synthroid] 150 mcg PO QAM 01/09/15 [History] Losartan [Cozaar] 100 mg PO QAM 01/09/15 [History] Metformin [Glucophage] 500 mg PO BID 01/09/15 [History] Metoprolol XL (24 HR) Succ [Toprol XL] 50 mg PO QAM 01/09/15 [History] Amlodipine [Norvasc] 2.5 mg PO DAILY 04/30/15 [History] Simvastatin [Zocor] 20 mg PO DAILY 04/30/15 [History] Apixaban [Eliquis] 2.5 mg PO BID 60 Days tablet 05/03/15 [Rx] Docusate [Colace] 100 mg PO BID #60 capsule 11/29/17 [Rx] Ferrous Sulfate 325 mg PO BIDWM #60 tablet 11/29/17 [Rx] LORazepam [Ativan] 0.5 mg PO HS PRN 2 Days #2 tablet 11/29/17 [Rx] OxyCODONE/APAP 5/325 [Percocet 5/325 MG] 1 each PO Q6HR PRN 2 Days #8 tablet 05/18 [Rx] Calcium Carbonate [Calcium] 500 mg PO BID 01/08/18 [History] Lactulose [Enulose] 20 gm PO BID 01/08/18 [History] Midodrine HCl 2.5 mg PO TID 01/08/18 [History] Ciprofloxacin [Cipro] 500 mg PO DAILY #4 mls 01/10/18 [Rx] metroNIDAZOLE [Flagyl] 500 mg PO ONCE #4 tablet 01/10/18 [Rx] Allergies/Adverse Reactions: 3 Allergy/AdvReac Type Severity Reaction Status Date / Time Sulfa (Sulfonamide Allergy Hives Verified 01/09/15 18:17 Antibiotics) Date of admission: 01/08/18 15:30 Primary care physician: Marquita Nj CNP Consults: 01/08/18 15:31 Consult to Nutrition [CONS] Routine Comment: Consulting Provider: NUTRITION Reason for Dietary Consult: MST Score Consult to Top Distribution Executive [CONS] Routine Reason for SW Consult: from [facility] - Constitutional Vitals: Temp Pulse Resp BP Pulse Ox 98.4 F 67 18 155/84 95 01/10/18 10:56 01/10/18 10:56 01/10/18 10:56 01/10/18 10:56 01/10/18 10:56 General appearance: Present: cooperative, A&O X 2, answers questions appropriately Exam: General: Patient is alert, no acute distress, oriented x 3 Respiratory: Good respiratory effort. Normal breath sounds. No wheezing or crackles. Cardiovascular: Irregularly irregular No pedal edema Abdomen: Abdomen is soft, nontender. Bowel sounds are present, no guarding or rebound tenderness Musculoskeletal: Spontaneously moving all extremities Skin: warm, dry, intact. Neuro: Alert oriented x 3 normal cranial nerves, no focal deficits - Patient Status Disposition: Transfer SNF Condition: Fair Overall status at discharge: patient is progressing back to baseline - Discharge Instructions Follow Up With: Marquita Nj CNP [Primary Care Provider] - Additional Instructions: - Continue taking lactulose and Colace. - Stay hydrated - Stop taking Percocets and take Tylenol for pain control - Incorporate more fiber in the diet. - Diet and Activity Activity: increase activity as tolerated Diet: low fat, low cholesterol, low salt diet <Daniel Berumen - Last Filed: 01/10/18 17:31> Date of Encounter: 01/10/18 - Discharge Diagnosis (1) Constipation by delayed colonic transit Priority: Secondary Status: Chronic (2) Colitis Priority: Primary Status: Acute (3) Hypertension Priority: Secondary Status: Chronic Qualifiers: Hypertension type: essential hypertension Qualified Code(s): I10 - Essential (primary) hypertension (4) HLD (hyperlipidemia) Priority: Secondary Status: Chronic Qualifiers: Hyperlipidemia type: mixed hyperlipidemia Qualified Code(s): E78.2 - Mixed hyperlipidemia (5) Non-insulin dependent type 2 diabetes mellitus Priority: Secondary Status: Chronic (6) Atrial fibrillation Priority: Secondary Status: Chronic Qualifiers: Atrial fibrillation type: chronic Qualified Code(s): I48.2 - Chronic atrial fibrillation (7) Lactate blood increase Priority: Secondary Status: Resolved Hospital course: Ms. Dove is a 87 year old female - Time Spent with Patient Total time spent providing and/or coordinating discharge services: 38min Date of admission: 01/08/18 15:30 Primary care physician: Marquita Nj CNP Consults: 01/08/18 15:31 Consult to Nutrition [CONS] Routine Comment: Consulting Provider: NUTRITION Reason for Dietary Consult: MST Score Consult to Top Distribution Executive [CONS] Routine Reason for SW Consult: from [facility] - Constitutional Vitals: Temp Pulse Resp BP Pulse Ox 98.8 F 101 19 160/88 98 01/10/18 16:19 01/10/18 16:19 01/10/18 16:19 01/10/18 16:19 01/10/18 16:19 - Attending Attestation I examined this patient and my medical decision-making was reviewed with the Resident Physician on 01/10/18. I agree with the documented findings, disposition and treatment plan as described except to the extent set forth below. Ms Dove has been admitted for obstipation and abdominal pain. She has had significant bowel movements and is feeling better. She has been on abx as well for colitis and WBC has been improving. She is tolerating diet. At this point she is afebrile and ready for discharge home. Exam alert Comfortable Mucus membranes dry Heart distant Lungs clear Abd soft and nontender at this time. Not distended No edema Plan D/C back to SNF today.
--- NOTE | 2018-01-10 16:04 | Physician Discharge Referral ---
ExtendedCare Referral Info Transfer To: correction - Diagnosis (1) Colitis Priority: Primary Status: Acute (2) Hypertension Priority: Secondary Status: Chronic (3) Diabetes mellitus Priority: Secondary Status: Acute (4) Atrial fibrillation Priority: Secondary Status: Acute (5) HLD (hyperlipidemia) Priority: Secondary Status: Chronic - Transfer Medications Prescriptions: Ciprofloxacin [Cipro] 500 mg PO DAILY #4 mls metroNIDAZOLE [Flagyl] 500 mg PO ONCE #4 tablet Home Medications: Furosemide [Lasix] 40 mg PO DAILY PRN 01/09/15 [History] Levothyroxine [Synthroid] 150 mcg PO QAM 01/09/15 [History] Losartan [Cozaar] 100 mg PO QAM 01/09/15 [History] Metformin [Glucophage] 500 mg PO BID 01/09/15 [History] Metoprolol XL (24 HR) Succ [Toprol XL] 50 mg PO QAM 01/09/15 [History] Amlodipine [Norvasc] 2.5 mg PO DAILY 04/30/15 [History] Simvastatin [Zocor] 20 mg PO DAILY 04/30/15 [History] Apixaban [Eliquis] 2.5 mg PO BID 60 Days tablet 05/03/15 [Rx] Docusate [Colace] 100 mg PO BID #60 capsule 11/29/17 [Rx] Ferrous Sulfate 325 mg PO BIDWM #60 tablet 11/29/17 [Rx] LORazepam [Ativan] 0.5 mg PO HS PRN 2 Days #2 tablet 11/29/17 [Rx] OxyCODONE/APAP 5/325 [Percocet 5/325 MG] 1 each PO Q6HR PRN 2 Days #8 tablet 05/18 [Rx] Calcium Carbonate [Calcium] 500 mg PO BID 01/08/18 [History] Lactulose [Enulose] 20 gm PO BID 01/08/18 [History] Midodrine HCl 2.5 mg PO TID 01/08/18 [History] Ciprofloxacin [Cipro] 500 mg PO DAILY #4 mls 01/10/18 [Rx] metroNIDAZOLE [Flagyl] 500 mg PO ONCE #4 tablet 01/10/18 [Rx] Allergies/Adverse Reactions: 3 Allergy/AdvReac Type Severity Reaction Status Date / Time Sulfa (Sulfonamide Allergy Hives Verified 09/11/15 18:17 Antibiotics) - Respiratory Orders Smoking Cessation: Smoking cessation has been advised. For more information, call the [place] Tobacco Quit Line at 2-024-WJBR-NOW. CERTIFICATION: I certify that the transfer of the above named patient to an Extended Care Facility is necessary for the continuing treatment of the diagnosis listed. The above information is true and accurate reflection of patient's current condition. Confidential - Redisclosure prohibited without a patient's written consent.
[2018-01-10 16:20] VITALS: BP 160/88
== END 2018-01-10 16:42 | DRG 392 ==
LOC: EMEROOARM 09:14 → 3ANU 09:14 → SUATTDRO 15:30 → 2ANU 21:29
PROVIDERS: ADMIT Internal Medicine; ATTEND Internal Medicine